=== PATIENT | male | born 1950 | race African-American/Black ===

== ENCOUNTER 2017-07-16 16:43 | Inpatient (IN) ==
[2017-07-16] MEDS ORDERED: METOCLOPRAMIDE 10 MG/2 ML VIAL IV STA (17:12)
[2017-07-16] MEDS ORDERED: ONDANSETRON 4 MG/2 ML VIAL IV STA (17:12)
[2017-07-16] MEDS ORDERED: PANTOPRAZOLE 40 MG VIAL IV STA (17:12)
[2017-07-16 17:19] LABS: Basophils % 0.3 % (0.0-0.8); Eosinophils # 0.2 10*3/uL (0.0-0.87); Hematocrit 27.8 VOL% (42.0-52.0); Hemoglobin 8.9 GM/DL (14.0-18.0); Immature Granulocytes % 0.9 %; Immature Granulocytes Absolute 0.06 #; Lymphocytes # 1.7 10*3/uL (1.4-4.0); Lymphocytes % 25.1 % (21.2-54.2); Mean Corpuscular Hemoglobin 32 PG (27-34); Mean Corpuscular Volume 99.6 FL (87-102); Mean Platelet Volume 10.1 FL (9.6-12.0); Monocytes % 14.6 % (1.7-12.7); Neutrophils # 3.7 10*3/uL (1.4-7.4); Neutrophils % 56.1 % (38.7-73.9); Platelet Count 232 T/CUMM (130-400); Red Blood Count 2.79 MC/CUMM (3.8-5.5); Red Cell Distribution Width 13.4 % (9.3-17.3); White Blood Count 6.6 T/CUMM (4-12)
[2017-07-16] MEDS ORDERED: PANTOPRAZOLE 40 MG VIAL IV ONE (17:20)
[2017-07-16] MEDS ORDERED: ONDANSETRON 4 MG/2 ML VIAL ONE (17:20)
[2017-07-16] MEDS ORDERED: METOCLOPRAMIDE 10 MG/2 ML VIAL ONE (17:20)
--- NOTE | 2017-07-16 17:25 | Emergency Department Note ---
Arrival - Arrival Chief Complaint: Nausea/Vomiting/Diarrhea Stated Complaint: sick ED Nursing Triage Note: reports vomiting everytime he tries to eat for the last three weeks. has a hx of bone cancer two months ago but is not taking treatments for that. Mode of Arrival: Wheelchair Limitations: No Limitations Source: Patient, Family Time Seen by Provider: 07/16/17 17:12 - History of Present Illness HPI Narrative: This 67-year-old black male presents with a history of 8 months of heartburn, belching, water brash, nausea, and vomiting with just about anytime he takes things orally be it liquid or solid. During that course of time he states he has lost 50 pounds and states that after 8 months his primary care physician in [place] is referred him to GI for an August 02 appointment. Complicating matters patient has multiple myeloma diagnosed by Dr. Coleman but he desired not to undertake treatment and has never gone back to Dr. Coleman. Finally he is status post a porcine aortic valve replacement and 2014 and was in the past followed by Dr. Michel. Currently at rest in bed he is in no acute distress. Onset (ago): month(s) (Patient presents 8 months post onset of symptoms) Allergies/Adverse Reactions: Allergies Allergy/AdvReac Type Severity Reaction Status Date / Time No Known Allergies Allergy Verified 04/30/15 16:05 Home Medications: Home Medications Medication Instructions Recorded Confirmed Type Clorazepate [Tranxene] 3.75 mg PO BID PRN 04/30/15 07/16/17 History Losartan [Cozaar] 50 mg PO QAM 07/16/17 07/16/17 History Omeprazole [Omeprazole] 40 mg PO QAM 07/16/17 07/16/17 History Tamsulosin [Flomax] 0.4 mg PO QAM 07/16/17 07/16/17 History Review of System - Review of System 12 point system: reviewed and no additional remarkable complaints except as stated - Review of System Constitutional: Present: as per HPI Gastrointestinal: Present: as per HPI Medical,Surgical,& Family Hx - Medical History Cardio: History of: Hypertension, Valvular Heart Disease (critical, symptomatic aortic stenosis) Neurology: No history of: Seizures Genitourinary: History of: Prostate Problems (BPH) Other: History of: Cancer (bone cancer) - Surgical History Orthopedic Surgeries: Surgical HX of;: Orthopedic Surgery (right knee scope) - Family History Family History: Reports;: Family Diabetes (MOTHER), Family Heart Disease ( MOTHER AND FATHER), Family Hypertension (MOTHER AND FATHER) - Social History Smoking Status: Never smoker Exam Physical Examination: GENERAL: Obese black male in no acute distress. HEENT: Normocephalic. No trauma. Moist mucous membranes. EOMI. PERRLA. ENT NML NECK: Supple. No adenopathy. CARDIAC: Regular. 2/4 joy heart rate 93 CHEST: Clear to auscultation. No respiratory distress. O2 sat 90% ABDOMEN: Soft. Minimal midepigastric tenderness. Active bowel sounds. EXTREMITIES: No trauma. Normal ROM. No pedal edema. SKIN: No diaphoresis. No rash. NEURO: Alert. Neuro intact. No focal deficits. Vital Signs: Vital Signs Temperature 98.1 F 07/16/17 16:51 Pulse Rate 86 07/16/17 18:00 Respiratory Rate 18 07/16/17 18:00 Blood Pressure 127/90 07/16/17 18:00 O2 Sat by Pulse Oximetry 97 07/16/17 18:00 Course - Reevaluation(s) Reevaluation #1: Discussed with family the need for admission given his deteriorating kidney function - Consultations Consultation #1: Discussed with hospitalist service will admit for further evaluation treatment. Results - Labs CBC & BMP: 07/16/17 17:11 07/16/17 17:11 Labs: I have reviewed the laboratory noted the anemia and the severe aberration of renal function. - Diagnostic Findings Procedure: Abdominal x-ray: image reviewed by me, report reviewed by me ( Scattered small bowel and colon gas consistent with ileus but not obstruction peer), Chest x-ray: image reviewed by me, report reviewed by me (Mild cardiomegaly otherwise stable chest) Disposition Clinical Impression: Renal failure, Untreated multiple myeloma, Porcine prosthetic aortic valve, Dysphagia Case discussed with: patient, patient's family Disposition: Still a Patient Condition: Guarded Time of Disposition: 18:45
[2017-07-16 17:40] LABS: Apearance,Urine CLEAR (Clear); Bacteria,Urine Occasional /HPF (Few); Bilirubin,Urine Negative (Negative); Blood, Urine Moderate mg/dL (Negative); Glucose,Urine (UA) Negative (Negative); Ketones,Urine Negative (Negative); Nitrite,Urine Negative (Negative); Protein,Urine 30 MG/DL; RBC,Urine 1 /HPF (0-4); Urine Color Straw (Yellow); Urine Specific Gravity 1.005 (1.001-1.035); Urine Urobilinogen < 2.0 EU/DL (0.2-1.0); WBC,Urine 2 /HPF (0-6)
[2017-07-16 17:53] LABS: Alanine Aminotransferase 14 U/L (16-61); Albumin 3.3 G/DL (3.4-5.0); Alkaline Phosphatase 112 U/L (45-117); Amylase 177 U/L (25-115); Aspartate Amino Transferase 9 U/L (0-37); Bilirubin,Total < 0.39 MG/DL (0.2-1.0); Blood Urea Nitrogen 121 MG/DL (7-18); Calcium 9.7 MG/DL (8.5-10.1); Glucose 115 MG/DL (74-106); Osmolality,Calculated 318.4 MOS/KG (273-304); Potassium 4.5 MMOL/L (3.5-5.1); Sodium 140 MMOL/L (136-145); Total Protein 9.6 G/DL (6.4-8.3)
--- NOTE | 2017-07-16 18:32 | XRay Report ---
2 view chest. Indication: Cough. Comparison: May 01, 2015. The heart is enlarged. Post median sternotomy. Prosthetic valve is present. Pulmonary vasculature is normal. The lung dacosta are clear. Mild degenerative changes of the spinal column. Impression: Mild stable cardiomegaly. No acute abnormality. PROCEDURE INTERPRETED AT [facility] DEPARTMENT OF RADIOLOGY Final Report Signed by: Dr. Alyson Perkins
--- NOTE | 2017-07-16 18:34 | XRay Report ---
2 view abdomen. Indication: Generalized abdominal pain. The heart is borderline enlarged. Post median sternotomy. No free air. There is mild gaseous distention of small intestine particularly in the left upper quadrant. There is gas in normal caliber colon to the level of the rectum. Vascular calcifications are seen within the pelvis. There is scoliosis and degenerative change present within the spinal column. Impression: Focal ileus in the left upper quadrant. PROCEDURE INTERPRETED AT [facility] DEPARTMENT OF RADIOLOGY Final Report Signed by: Dr. Alyson Perkins
--- NOTE | 2017-07-16 18:45 | EKG Report ---
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
[2017-07-16] MEDS ORDERED: ZALEPLON 5 MG CAPSULE PO PRN (19:34)
[2017-07-16] MEDS ORDERED: ACETAMINOPHEN 325 MG TABLET PO PRN (19:34)
[2017-07-16] MEDS ORDERED: CLORAZEPATE 3.75 MG TABLET PO PRN (19:40)
--- NOTE | 2017-07-16 19:47 | Nephrology History & Physical ---
History of Present Illness Chief complaint: Nausea History of present illness: Mr. Troy is a 67 year old male with a history of hypertension chronic kidney disease is followed by Dr. Jeong. He also has a history of GERD, BPH, as well as a diagnosis of coronary artery disease with CABG in 2014. He was also diagnosed with myeloma diagnosed since March of this year. The patient presents with 8 month history of a 50 pound weight loss GERD-like symptoms that has progressed to nausea and vomiting. The patient states he has been trying to take Pedialyte noodles but still having further nausea today. He mentions having a bitter taste in his mouth for several weeks to months. Again noted significant weight loss. Today he was not feeling well some shortness of breath and was staggering when he walked. Today, patient serum creatinine was noted to be 22 and BUN greater than 120. He mentions no fevers or chills. At present he states his nausea is improved. Patient states he has not had any change in his medications. He had followed up with hematology oncology regarding myeloma and stated he does not want chemotherapy. Moreover patient has stated that if he needed dialysis he would be willing to do dialysis as a last resort. Expressed to the patient about resuscitation status he expressed with his that he does not want resuscitation if his heart were to stop or breathe or to stop. Home Medications Medication Instructions Recorded Confirmed Type Clorazepate [Tranxene] 3.75 mg PO BID PRN 04/30/15 07/16/17 History Losartan [Cozaar] 50 mg PO QAM 07/16/17 07/16/17 History Omeprazole [Omeprazole] 40 mg PO QAM 07/16/17 07/16/17 History Tamsulosin [Flomax] 0.4 mg PO QAM 07/16/17 07/16/17 History Allergies Allergy/AdvReac Type Severity Reaction Status Date / Time No Known Allergies Allergy Verified 04/30/15 16:05 Review of Systems Constitutional: anorexia, fatigue, lethargy, malaise Respiratory: dyspnea, no cough Gastrointestinal: heartburn, nausea, vomiting, other (Weight loss), no diarrhea Genitourinary: no flank pain Musculoskeletal: no back pain Medical,Surgical,& Family Hx - Medical History Cardio: History of: Hypertension, Valvular Heart Disease (critical, symptomatic aortic stenosis) Neurology: No history of: Seizures Genitourinary: History of: Prostate Problems (BPH) Other: History of: Cancer (bone cancer) - Surgical History Orthopedic Surgeries: Surgical HX of;: Orthopedic Surgery (right knee scope) - Family History Family History: Reports;: Family Diabetes (MOTHER), Family Heart Disease ( MOTHER AND FATHER), Family Hypertension (MOTHER AND FATHER) - Social History Smoking Status: Never smoker Exam - Nephrology - Vital Signs Vital signs: Vital Signs Temp Pulse Resp BP BP Pulse Ox 07/16/17 18:40 86 18 142/93 99 07/16/17 18:00 86 18 127/90 97 07/16/17 17:01 91 H 18 137/88 100 07/16/17 16:51 98.1 F 93 H 18 140/94 98 - General Appearance General appearance: well-developed, appears started age, fatigue EENT: ATNC Neck: supple Respiratory: clear Cardiology: regular rate, regular rhythm Gastrointestinal: normoactive bowel sounds, no tenderness, no guarding Integumentary: no rash Neurologic: alert and oriented x3 Musculoskeletal: no clubbing Psychiatric: mood/affect appropriate, cooperative Results - Labs CBC & BMP: 07/16/17 17:11 07/16/17 17:11 Assessment and Plan (1) Myeloma Status: Acute Current Visit: Yes (2) Acute renal failure Status: Acute Assessment and plan: More likely due to acute on chronic kidney disease. We will get a renal ultrasound. Hepatitis panel. Continue with IV fluids. Daily BMP. Have expressed to the patient that he will probably need dialysis. He has stated that he would do dialysis but again denies wanting to do chemotherapy. Current Visit: Yes (3) Chronic kidney disease (CKD), stage V Status: Chronic Assessment and plan: Acute on chronic kidney disease. Patient to protect left arm. Daily weight. Repeat BMP in a.m. Current Visit: Yes (4) Status post aortic valve replacement with bioprosthetic valve Status: Chronic Current Visit: No (5) BPH (benign prostatic hyperplasia) Status: Chronic Current Visit: No (6) GERD (gastroesophageal reflux disease) Status: Chronic Current Visit: No
--- NOTE | 2017-07-16 19:52 | Event Note ---
I have discussed resuscitation status with patient in the presence of his emergency department nurse Garcia Candace at this time patient has stated he does not want resuscitation if his heart were to stop her breathing were to stop. Specifically does not want to be preservation just cardioverted or have a breathing tube. Will label chart DO NOT RESUSCITATE.
[2017-07-16 20:23] LABS: INR 1.1; PT Patient Result 11.7 SECS; Partial Thromboplastin Time 26.3 SECS (0-40)
[2017-07-16] MEDS ORDERED: PNEUMOCOCCAL VACCINE (13 VALENT) 0.5 ML SYRINGE IM ONE (21:02)
[2017-07-16] MEDS: ENOXAPARIN 30 MG/0.3 ML SYRINGE SUBCUT SCH (21:24)
[2017-07-16] MEDS: DOCUSATE SODIUM 100 MG CAPSULE PO SCH (21:24)
[2017-07-16] MEDS: SODIUM CHLORIDE 0.45% 1,000 ML IV SCH (21:24)
[2017-07-17] MEDS: SODIUM CHLORIDE 0.45% 1,000 ML IV SCH (05:23)
[2017-07-17 06:57] LABS: Basophils % 0.2 % (0.0-0.8); Eosinophils # 0.2 10*3/uL (0.0-0.87); Eosinophils % 3.5 % (0.00-10.9); Hematocrit 24.6 VOL% (42.0-52.0); Immature Granulocytes % 1.1 %; Immature Granulocytes Absolute 0.06 #; Lymphocytes # 1.5 10*3/uL (1.4-4.0); Lymphocytes % 28.4 % (21.2-54.2); Mean Corpuscular HGB Conc 31.7 GM/DL (32-36); Mean Corpuscular Hemoglobin 32 PG (27-34); Mean Corpuscular Volume 100.4 FL (87-102); Mean Platelet Volume 10.3 FL (9.6-12.0); Monocytes # 0.7 10*3/uL (0.11-0.8); Monocytes % 13.4 % (1.7-12.7); Neutrophils # 2.9 10*3/uL (1.4-7.4); Neutrophils % 53.4 % (38.7-73.9); Platelet Count 206 T/CUMM (130-400); Red Blood Count 2.45 MC/CUMM (3.8-5.5); Red Cell Distribution Width 13.4 % (9.3-17.3); White Blood Count 5.4 T/CUMM (4-12)
[2017-07-17 07:03] LABS: Hemoglobin 7.8 GM/DL (14.0-18.0)
[2017-07-17 07:22] LABS: Calcium 9.2 MG/DL (8.5-10.1); Osmolality,Calculated 319.3 MOS/KG (273-304); Potassium 4.9 MMOL/L (3.5-5.1)
[2017-07-17 07:54] LABS: Hepatitis A Ab IgM Quant 0.11 Index; Hepatitis A Ab IgM Result Negative (Negative); Hepatitis B Core IgM Quant 0.11 Index; Hepatitis B Core IgM Result Negative (Negative); Hepatitis B Surface Ag Quant 0.58 Index; Hepatitis B Surface Ag Result Negative (Negative); Hepatitis C Virus Ab Quant 0.05 Index; Hepatitis C Virus Ab Result Negative (Negative)
--- NOTE | 2017-07-17 09:10 | Ultrasound Report ---
US renal Bilateral Indication: Acute on chronic renal failure. Comparison: None. Technique: Multiple longitudinal and transverse real-time sonographic images of the kidneys are obtained. Findings: The right kidney measures 11.9 cm, and the left kidney measures 11.0 cm. There is no evidence of hydronephrosis. Renal parenchyma is somewhat hyperechoic suggestive of medical renal disease. IMPRESSION: Medical renal disease without evidence of hydronephrosis. PROCEDURE INTERPRETED AT [facility] DEPARTMENT OF RADIOLOGY Final Report Signed by: Dr Madhu Gordon
--- NOTE | 2017-07-17 09:35 | Nephrology Consult Note ---
History of Present Illness Chief complaint: End-stage renal disease History of present illness: Mr. Troy is a 67 year old male with a history of hypertension chronic kidney disease with worsening renal function presented yesterday with nausea vomiting BUN was greater than 100 and creatinine was greater than 22. Patient also has a history of multiple myeloma and has decided not to go to treatment. He has expressed that if his kidneys were to fail he would do dialysis but again has expressed does not want chemotherapy. Renal ultrasound shows evidence of medical renal disease. Creatinine has not improved in the last 12 hours. At this time patient is in agreement to proceed with dialysis. Nephrology has been consulted for these renal issues and again have us discuss with patient and his family who are in agreement with the plan. Home Medications Medication Instructions Recorded Confirmed Type Clorazepate [Tranxene] 7.5 mg PO BID 04/30/15 07/16/17 History Losartan [Cozaar] 50 mg PO QAM 07/16/17 07/16/17 History Omeprazole [Omeprazole] 40 mg PO QAM 07/16/17 07/16/17 History Tamsulosin [Flomax] 0.4 mg PO QAM 07/16/17 07/16/17 History Allergies Allergy/AdvReac Type Severity Reaction Status Date / Time No Known Allergies Allergy Verified 04/30/15 16:05 Medical,Surgical,& Family Hx - Medical History Cardio: History of: Hypertension, Valvular Heart Disease (critical, symptomatic aortic stenosis) Neurology: No history of: Seizures Genitourinary: History of: Prostate Problems (BPH) Other: History of: Cancer (bone cancer) - Surgical History Orthopedic Surgeries: Surgical HX of;: Orthopedic Surgery (right knee scope) - Family History Family History: Reports;: Family Diabetes (MOTHER), Family Heart Disease ( MOTHER AND FATHER), Family Hypertension (MOTHER AND FATHER) - Social History Smoking Status: Never smoker Frequency of Alcohol Use: None Type of Drug Use: None Review of Systems Constitutional: fatigue, lethargy Respiratory: dyspnea Gastrointestinal: nausea, vomiting Exam - Vital Signs Vital signs: Period Temp Pulse Resp BP Sys/Sheldon Pulse Ox Last 24 Hr 97.1 F-98.6 F 82-114 12-20 117-180/62-98 93-100 - General Appearance General appearance: well-developed EENT: ATNC Neck: supple Respiratory: clear Cardiology: regular rate, regular rhythm Gastrointestinal: normoactive bowel sounds, no tenderness Neurologic: alert and oriented x3 Musculoskeletal: no deformities, no clubbing Psychiatric: mood/affect appropriate, cooperative Results - Labs CBC & BMP: 07/17/17 06:21 07/17/17 06:21 Assessment and Plan (1) Myeloma Status: Acute Current Visit: Yes (2) Acute renal failure Status: Acute Assessment and plan: More likely progressive renal failure. Patient has underlying medical renal disease by renal ultrasound done today. Serum creatinine greater than 22. He is in agreement to initiate hemodialysis. Current Visit: Yes (3) Chronic kidney disease (CKD), stage V Status: Chronic Assessment and plan: Acute on chronic kidney disease. Progressive renal failure. Hepatitis panel is negative. Have consulted surgery for dialysis catheter. Current Visit: Yes (4) Status post aortic valve replacement with bioprosthetic valve Status: Chronic Current Visit: No (5) BPH (benign prostatic hyperplasia) Status: Chronic Current Visit: No (6) GERD (gastroesophageal reflux disease) Status: Chronic Current Visit: No
--- NOTE | 2017-07-17 10:25 | General Surgery Consult Note ---
Assessment and Plan (1) Acute renal failure Status: Acute Assessment and plan: Patient has CKD 5 now with worsening renal failure which is not recovering which dialysis been recommended. The patient has agreed to receive dialysis treatments as this is felt by nephrology to likely be a progression of his disease. Dr. Newell is consulted for hemodialysis catheter placement. I reviewed the risks of procedure including but not limited to infection, injury of adjacent structures, bleeding, lung injury, septicemia which could be life- threatening, and wound healing complications. The patient and his who is present expressed understanding of these risks and agreed to proceed. Patient has requested to be DNR, and I discussed with him that he would be fully resuscitated if there were any arrest occurrences in the operating room; again they are in understanding and agreement with this plan of care. He may proceed with dialysis post placement. Current Visit: Yes (2) Chronic kidney disease (CKD), stage V Status: Chronic Current Visit: Yes History of Present Illness Chief complaint: Worsening renal failure History of present illness: Mr. Troy is a 67 year old male Home Medications Medication Instructions Recorded Confirmed Type Clorazepate [Tranxene] 7.5 mg PO BID 04/30/15 07/16/17 History Losartan [Cozaar] 50 mg PO QAM 07/16/17 07/16/17 History Omeprazole [Omeprazole] 40 mg PO QAM 07/16/17 07/16/17 History Tamsulosin [Flomax] 0.4 mg PO QAM 07/16/17 07/16/17 History Allergies Allergy/AdvReac Type Severity Reaction Status Date / Time No Known Allergies Allergy Verified 04/30/15 16:05 Medical,Surgical,& Family Hx - Medical History Cardio: History of: Hypertension, Valvular Heart Disease (critical, symptomatic aortic stenosis s/p valve replacement) Neurology: No history of: Seizures Genitourinary: History of: Prostate Problems (BPH) Other: History of: Cancer (bone cancer) - Surgical History Orthopedic Surgeries: Surgical HX of;: Orthopedic Surgery (right knee scope) - Family History Family History: Reports;: Family Diabetes (MOTHER), Family Heart Disease ( MOTHER AND FATHER), Family Hypertension (MOTHER AND FATHER) - Social History Smoking Status: Never smoker Frequency of Alcohol Use: None Type of Drug Use: None - Constitutional Constitutional: Absent: chills, fever(s) - Cardiovascular Cardiovascular: Present: dyspnea on exertion. Absent: chest pain at rest - Gastrointestinal Gastrointestinal: Present: other (No current N/V). Absent: abdominal pain Hematologic/Lymphatic: Absent: easy bleeding, easy bruising Exam - Constitutional Vitals: Period Temp Pulse Resp BP Sys/Sheldon Pulse Ox Last 24 Hr 97.1 F-98.6 F 82-114 12-20 117-180/62-98 93-100 General appearance: no acute distress - Head Head exam: Present: atraumatic - Eye Eye exam: Absent: scleral icterus - Neck Neck exam: Present: trachea midline - Respiratory Respiratory exam: Present: clear to auscultation bilaterally - Cardiovascular Cardiovascular exam: Present: RRR - GI/Abdominal GI/Abdominal exam: Present: soft. Absent: distended, tenderness - Neurological Exam Neurological exam: Present: alert, oriented X3 Speech: Present: normal Results - Labs CBC & BMP: 07/17/17 06:21 07/17/17 06:21 Lab Results: I have reviewed the past 24 hour labs
[2017-07-17] MEDS ORDERED: LIDOCAINE 1%/EPI INJ 20 ML VIAL ONE (12:12)
[2017-07-17] MEDS ORDERED: BUPIVACAINE MPF 0.25% /EPI 30 ML VIAL ONE (12:12)
[2017-07-17] MEDS ORDERED: HEPARIN 5,000 UNIT/1 ML VIAL ONE (12:12)
[2017-07-17] MEDS ORDERED: PROPOFOL 200 MG/20 ML VIAL IV ONE (13:00)
[2017-07-17] MEDS ORDERED: LIDOCAINE 1% 5 ML VIAL ONE (13:00)
[2017-07-17] MEDS ORDERED: ONDANSETRON 4 MG/2 ML VIAL ONE (13:00)
[2017-07-17] MEDS ORDERED: SODIUM CHLORIDE 0.9% 100 ML IV ONE (13:51)
[2017-07-17] MEDS ORDERED: fentaNYL 100 MCG/2 ML VIAL ONE (13:51)
[2017-07-17] MEDS ORDERED: MIDAZOLAM 2 MG/2 ML VIAL ONE (13:51)
--- NOTE | 2017-07-17 13:59 | Hospitalist Progress Note ---
Assessment and Plan (1) Myeloma Status: Acute Assessment and plan: 1)Multiple Myeloma- no treatment desired. DNR 2)ESRD- initiating HD today. 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 He is going to have dialysis catheter placed today and then start dialysis. He does not want to have treatment for his MM. Exam - Constitutional Vitals: Period Temp Pulse Resp BP Sys/Sheldon Pulse Ox Last 24 Hr 97.1 F-98.6 F 82-114 12-20 117-180/62-98 93-100 General appearance: no acute distress, over weight - Eye Eye exam: Present: EOMI. Absent: scleral icterus - Respiratory Respiratory exam: Present: clear to auscultation bilaterally - Cardiovascular Cardiovascular exam: Present: regular rate and rhythm - GI/Abdominal GI/Abdominal exam: Present: normal bowel sounds, soft - Extremities Exam Extremities exam: Absent: edema - Neurological Exam Neurological exam: Present: alert, oriented X3 Results - Labs CBC & BMP: 07/17/17 06:21 07/17/17 06:21 Lab Results: I have reviewed the past 24 hour labs
--- NOTE | 2017-07-17 14:04 | Anesthesia Post-Op ---
Anesthesia Post OP - Post Ansesthetic Evaluation Patient seen in post op: Yes Resp: within normal limits CV: within normal limits Mental: within normal limits Temp: within normal limits [id number]: within normal limits Nausea and Vomiting: within normal limits Pain: within normal limits
--- NOTE | 2017-07-17 14:10 | XRay Report ---
Exam: XR chest 1V portable Date: 07/17/2017 1:38 PM Indication: Hemodialysis catheter placement Comparison: 07/16/2017 Technical: AP Findings: A dialysis catheter is placed from a left-sided approach with distal tip is in the innominate -superior vena cava junction. Sternotomy wires are present. No obvious infiltrates or effusions. The heart is normal in size. No pneumothorax. Oxygen face shield is present Impression: 1. Interval placement of dialysis catheter from a left-sided approach with the distal tip in the proximal SVC 2. Previous sternotomy PROCEDURE INTERPRETED AT [facility] DEPARTMENT OF RADIOLOGY Final Report Signed by: Dr. Gonzales Morris
[2017-07-17] MEDS: DOCUSATE SODIUM 100 MG CAPSULE PO SCH ×2 (15:35→20:04)
--- NOTE | 2017-07-17 15:49 | Operative Note ---
Date of procedure: 07/17/17 Pre-op diagnosis: End-stage renal disease Post-op diagnosis: same Procedure: Procedure performed: Placement of left internal jugular tunneled hemodialysis catheter #2 ultrasound-guided venous access #3 supervision fluoroscopy Procedure in detail: After informed consent was obtained, patient taken operating suite lies upon the operating table. After monitored anesthesia was initiated the patient was placed in Trendelenburg position in the bilateral neck and chest prepped and draped in usual sterile fashion. After procedural pause ultrasound brought after a sterile sleeve covering ultrasound the left neck revealed a patent and compressible left internal jugular vein. Left internal jugular vein was then accessed using an 18-gauge Seldinger needle under ultrasound guidance on the first attempt. There is return of nonpulsatile dark red blood. Guidewire inserted without resistance. Fluoroscopy demonstrated guidewire be coursing in appropriate position. Next a 23 cm cuffed hemodialysis catheter was tunneled from separate incision in the left chest wall up to the base the left neck. Dilator and sheath were placed over the guidewire using Seldinger technique under fluoroscopic guidance. Dilator and guidewire were removed. Catheter placed through the sheath and sheath peeled away leaving the catheter tip in Spear vena cava. Catheter withdrew and flushed easily was locked with heparinized saline. It was secured in place with 2-0 nylon suture. Incision closed with 2-0 nylon suture. Sterile dressings applied. Patient was taken recovery room in stable condition. All lap and needle counts correct in the case. Anesthesia: MAC Surgeon / Physician: Vazquez Newell Estimated blood loss: other (Less than 10 cc) Specimens: none sent Condition: stable Disposition: PACU Results - Labs CBC & BMP: 07/17/17 06:21 07/17/17 06:21 Discharge Plan - Discharge Medications No Action Clorazepate [Tranxene] 7.5 mg PO BID Losartan [Cozaar] 50 mg PO QAM Omeprazole [Omeprazole] 40 mg PO QAM Tamsulosin [Flomax] 0.4 mg PO QAM - Follow Up or Referral - Forms/Instructions
--- NOTE | 2017-07-17 16:32 | Dialysis Note ---
Dialysis Note - Dialysis Note Patient seen on dialysis. He is tolerating the procedure. Blood pressure 130/ 69. Cardiovascular regular rate. Lungs clear to auscultation. Abdomen is soft.
[2017-07-17] MEDS ORDERED: HEPARIN 10,000 UNIT/10 ML VIAL IV SCH (18:30)
[2017-07-17] MEDS: TAMSULOSIN 0.4 MG CAPSULE PO SCH (19:00)
[2017-07-17] MEDS: PANTOPRAZOLE 40 MG TABLET PO SCH (19:00)
[2017-07-17] MEDS: ENOXAPARIN 30 MG/0.3 ML SYRINGE SUBCUT SCH (20:04)
[2017-07-18 05:38] LABS: Basophils % 0.3 % (0.0-0.8); Eosinophils # 0.2 10*3/uL (0.0-0.87); Eosinophils % 2.7 % (0.00-10.9); Hematocrit 24.2 VOL% (42.0-52.0); Hemoglobin 7.7 GM/DL (14.0-18.0); Immature Granulocytes % 1.2 %; Immature Granulocytes Absolute 0.07 #; Lymphocytes # 1.4 10*3/uL (1.4-4.0); Lymphocytes % 23.3 % (21.2-54.2); Mean Corpuscular HGB Conc 31.8 GM/DL (32-36); Mean Corpuscular Hemoglobin 32 PG (27-34); Mean Corpuscular Volume 100.4 FL (87-102); Mean Platelet Volume 10.4 FL (9.6-12.0); Monocytes # 0.9 10*3/uL (0.11-0.8); Monocytes % 14.1 % (1.7-12.7); Neutrophils # 3.5 10*3/uL (1.4-7.4); Neutrophils % 58.4 % (38.7-73.9); Platelet Count 194 T/CUMM (130-400); Red Blood Count 2.41 MC/CUMM (3.8-5.5); Red Cell Distribution Width 13.2 % (9.3-17.3)
[2017-07-18 06:09] LABS: Calcium 9.3 MG/DL (8.5-10.1); Osmolality,Calculated 303.5 MOS/KG (273-304)
[2017-07-18] MEDS: DOCUSATE SODIUM 100 MG CAPSULE PO SCH ×2 (08:55→20:40)
[2017-07-18] MEDS: TAMSULOSIN 0.4 MG CAPSULE PO SCH (08:55)
[2017-07-18] MEDS: PANTOPRAZOLE 40 MG TABLET PO SCH (08:56)
--- NOTE | 2017-07-18 11:44 | Hospitalist Progress Note ---
Assessment and Plan (1) Myeloma Status: Acute Assessment and plan: 1)Multiple Myeloma- no treatment desired. DNR 2)ESRD- initiating HD today. 3)anemia due to MM and CKD- he was not transfused at HD yesterday- we will transfuse him today. 4)Ucx negative. 5)dispo- he plans to return home on HD. Current Visit: Yes (2) Chronic kidney disease (CKD), stage V Status: Chronic Current Visit: Yes Hospitalist: Subjective Interval history: Mr Troy is feeling ok today. He had dialysis yesterday and will again today. CM is working on outpatient HD arrangements. Exam - Constitutional Vitals: Period Temp Pulse Resp BP Sys/Sheldon Pulse Ox Last 24 Hr 97.2 F-98.3 F 86-99 14-22 109-151/66-92 94-100 General appearance: no acute distress, over weight - Eye Eye exam: Present: EOMI. Absent: scleral icterus - Respiratory Respiratory exam: Present: clear to auscultation bilaterally - Cardiovascular Cardiovascular exam: Present: regular rate and rhythm - GI/Abdominal GI/Abdominal exam: Present: normal bowel sounds, soft. Absent: tenderness - Extremities Exam Extremities exam: Absent: edema Results - Labs CBC & BMP: 07/18/17 04:57 07/18/17 04:57 Lab Results: I have reviewed the past 24 hour labs
--- NOTE | 2017-07-18 12:27 | Dialysis Note ---
Dialysis Note - Dialysis Note Mr. Troy seen during his hemodialysis. He is currently mildly hypotensive with a blood pressure 100 systolic. He continues to dialyze and is doing well.
[2017-07-18] MEDS ORDERED: SODIUM CHLORIDE 0.9% 250 ML IV PRN (12:32)
[2017-07-18] MEDS ORDERED: SODIUM CHLORIDE 0.9% 500 ML IV ONE (12:47)
[2017-07-18] MEDS ORDERED: SODIUM CHLORIDE 0.9% 1,000 ML IV ONE (13:16)
--- NOTE | 2017-07-18 13:16 | Event Note ---
critical care 35 minutes Called to see patient for hypotension. When her returned from dialysis his BP was 61/25. He was somnolent his eyes rolled back in his head and then began to vomit. A bolus of NS was started and when he remained hypotensive he was placed in trendelenburg and his BP now is 109/50. When I arrived he was starting to wake and answered questions with clear speech. He had his second dialysis today for 4 hours. His lungs are clear, he is not tachycardic. Abd soft and nontender. No edema. Amount removed at dialysis is not available at this time. Plan- transfer to CCU, bolus with another 500 cc NS. r/o PR, stat labs proceed with transfusion when blood available. I suspect this is due to hypovolemia after dialysis. We will let nephrology know. I have talked to his also and explained our plan. [id number] removed at dialysis
[2017-07-18 13:29] LABS: Basophils % 0.3 % (0.0-0.8); Eosinophils # 0.2 10*3/uL (0.0-0.87); Eosinophils % 2.1 % (0.00-10.9); Hematocrit 25.6 VOL% (42.0-52.0); Hemoglobin 8.1 GM/DL (14.0-18.0); Immature Granulocytes % 1.2 %; Immature Granulocytes Absolute 0.09 #; Lymphocytes # 2.7 10*3/uL (1.4-4.0); Lymphocytes % 35.7 % (21.2-54.2); Mean Corpuscular HGB Conc 31.6 GM/DL (32-36); Mean Corpuscular Hemoglobin 32 PG (27-34); Mean Corpuscular Volume 100.4 FL (87-102); Monocytes # 0.8 10*3/uL (0.11-0.8); Monocytes % 10.4 % (1.7-12.7); Neutrophils # 3.8 10*3/uL (1.4-7.4); Neutrophils % 50.3 % (38.7-73.9); Platelet Count 166 T/CUMM (130-400); Red Blood Count 2.55 MC/CUMM (3.8-5.5); Red Cell Distribution Width 13.3 % (9.3-17.3); White Blood Count 7.6 T/CUMM (4-12)
[2017-07-18 13:51] LABS: Calcium 8.5 MG/DL (8.5-10.1); Osmolality,Calculated 287.8 MOS/KG (273-304); Potassium 3.7 MMOL/L (3.5-5.1)
--- NOTE | 2017-07-18 13:56 | XRay Report ---
History is hypotension Comparison 07/17/2017 The heart is at the upper range normal in size. Dialysis catheter on the left again is been tip at the level of the azygos arch at the right lateral wall of the SVC. No congestive failure or confluent infiltrates seen No pneumothorax seen Impression: Stable portable chest PROCEDURE INTERPRETED AT [facility] DEPARTMENT OF RADIOLOGY Final Report Signed by: Dr. Mi Perkins
--- NOTE | 2017-07-18 15:02 | EKG Report ---
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
[2017-07-18] MEDS: ENOXAPARIN 30 MG/0.3 ML SYRINGE SUBCUT SCH (20:40)
[2017-07-19 01:14] LABS: Basophils % 0.1 % (0.0-0.8); Eosinophils # 0.1 10*3/uL (0.0-0.87); Eosinophils % 1.7 % (0.00-10.9); Hematocrit 27.8 VOL% (42.0-52.0); Hemoglobin 9.1 GM/DL (14.0-18.0); Immature Granulocytes % 2.3 %; Immature Granulocytes Absolute 0.17 #; Lymphocytes # 1.1 10*3/uL (1.4-4.0); Lymphocytes % 15.3 % (21.2-54.2); Mean Corpuscular HGB Conc 32.7 GM/DL (32-36); Mean Corpuscular Hemoglobin 32 PG (27-34); Mean Corpuscular Volume 96.5 FL (87-102); Mean Platelet Volume 9.8 FL (9.6-12.0); Monocytes % 13.6 % (1.7-12.7); NRBC # 0.02 10*3/uL; Platelet Count 180 T/CUMM (130-400); Red Blood Count 2.88 MC/CUMM (3.8-5.5); Red Cell Distribution Width 14.3 % (9.3-17.3); White Blood Count 7.5 T/CUMM (4-12)
[2017-07-19 01:44] LABS: Calcium 9.1 MG/DL (8.5-10.1); Osmolality,Calculated 287.8 MOS/KG (273-304); Potassium 4.7 MMOL/L (3.5-5.1)
--- NOTE | 2017-07-19 03:34 | EKG Report ---
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
[2017-07-19 05:07] LABS: Amorphous Crystals,Urine Occasional /HPF (Few); Apearance,Urine CLEAR (Clear); Bacteria,Urine Occasional /HPF (Few); Bilirubin,Urine Negative (Negative); Blood, Urine Moderate mg/dL (Negative); Glucose,Urine (UA) Negative (Negative); Ketones,Urine Negative (Negative); Mucus,Urine Occasional /LPF (Occasional); Nitrite,Urine Negative (Negative); Protein,Urine 30 MG/DL; RBC,Urine 1 /HPF (0-4); Squamous Epithelial Cell,Urine Occasional /HPF (0-10); Urine Color Straw (Yellow); Urine Specific Gravity 1.003 (1.001-1.035); Urine Urobilinogen < 2.0 EU/DL (0.2-1.0); WBC,Urine 3 /HPF (0-6)
[2017-07-19] MEDS: DOCUSATE SODIUM 100 MG CAPSULE PO SCH ×2 (08:43→20:40)
[2017-07-19] MEDS: PANTOPRAZOLE 40 MG TABLET PO SCH (08:43)
[2017-07-19] MEDS: TAMSULOSIN 0.4 MG CAPSULE PO SCH (08:43)
[2017-07-19] MEDS: ONDANSETRON 4 MG/2 ML VIAL IV PRN (09:20)
--- NOTE | 2017-07-19 10:23 | Hospitalist Progress Note ---
Assessment and Plan (1) NSTEMI (non-ST elevated myocardial infarction) Status: Acute Assessment and plan: The patient's troponin is now 3. We will consult the certified peer specialist concerning further management. Blood pressure is presently stable. Hemoglobin is 9 and creatinine 13. Current Visit: Yes (2) End stage renal disease on dialysis Status: Acute Current Visit: Yes (3) Status post aortic valve replacement with bioprosthetic valve Status: Chronic Current Visit: No Hospitalist: Subjective Interval history: Mr. Troy had his second hemodialysis treatment yesterday. The patient became hypotensive and was transferred to critical care area and given IV fluid challenge. Blood pressure improved through the night. Troponin elevated to 3 this morning consistent with non-ST elevation myocardial infarction. Exam - Constitutional Vitals: Period Temp Pulse Resp BP Sys/Sheldon Pulse Ox Last 24 Hr 96.7 F-98.2 F 88-105 8-25 70-169/52-103 92-100 Exam: Constitutional System: Minimal distress. No tremulousness. Head: Normocephalic, atraumatic. Ears, Nose and Throat System: No evidence of Otitis or Mastoiditis. No epistaxis or discharge Eyes System: Pupils equal, round, and reactive. Extraocular muscles intact. Neck: Supple, without adenopathy, No jugular venous distention. No thyromegaly , neck mass, or prior surgery apparent. Respiratory System: Chest clear to auscultation. Cardiovascular System: Heart with regular rate and rhythm. No murmur. GI System: Abdomen soft, nontender. Normo active bowel sounds present. Musculoskeletal System: limbs with no pedal edema. Full distal pulses. Neurological System: No discernable sensory deficit. No aphasia Psychiatric System: Conversation is rational Results - Labs CBC & BMP: 07/19/17 00:57 07/19/17 00:57 Lab Results: I have reviewed the past 24 hour labs Specialty Discharge - Follow Up or Referrals Follow up with: Vazquez Newell MD [Physician] - 2 Weeks
--- NOTE | 2017-07-19 13:23 | Dialysis Note ---
Dialysis Note - Dialysis Note Patient seen on hemodialysis, he is tolerating this well will continue his treatment unchanged.
[2017-07-19] MEDS: ENOXAPARIN 30 MG/0.3 ML SYRINGE SUBCUT SCH (20:27)
[2017-07-20 04:26] LABS: Hematocrit 28.4 VOL% (42.0-52.0); Hemoglobin 9.3 GM/DL (14.0-18.0)
[2017-07-20 05:01] LABS: Calcium 8.8 MG/DL (8.5-10.1); Magnesium 2.1 MG/DL (1.8-2.4); Osmolality,Calculated 277.1 MOS/KG (273-304); Potassium 4.5 MMOL/L (3.5-5.1)
[2017-07-20 05:14] LABS: Troponin I Only 2.54 NG/ML (0.00-0.045)
--- NOTE | 2017-07-20 08:44 | Cardiology Consult Note ---
Addendum entered and electronically signed by Charlotte Leyva NP 07/20/17 09:24 : Addendum: Of note, Mr. Troy has been anemic during this admission with H&H of 7.8 & 24.6, requiring blood transfusion of 2 units PRBCs. This may limit our use of dual antiplatelet therapy. For now, will start him on low dose aspirin. He denies a history of any bleeding issues. Original Note: Assessment and Plan - Time spent with patient Time spent with patient: Greater than 30 minutes (due to chart review, assessment, plan, and documentation) (1) End stage renal disease on dialysis Status: Acute Assessment and plan: See plan of care listed below. Current Visit: Yes (2) NSTEMI (non-ST elevated myocardial infarction) Status: Acute Assessment and plan: See plan of care listed below. Current Visit: Yes (3) Myeloma Status: Acute Assessment and plan: See plan of care listed below. Current Visit: Yes (4) Hypertension Status: Chronic Assessment and plan: See plan of care listed below. Current Visit: Yes (5) Hyperlipidemia Status: Chronic Assessment and plan: See plan of care listed below. Current Visit: Yes (6) Status post aortic valve replacement with bioprosthetic valve Status: Chronic Assessment and plan: See plan of care listed below. Current Visit: No History of Present Illness - Data of Consult Patient: known to practice within the last 3 years (Last seen by Dr. Michel 05/26/2015) Consult date: 07/19/17 Requesting Physician: Rivas Rendon - Consult Narrative Reason for consult: Elevated troponin History of present illness: Independent Producer: Dr. Michel Mr. Troy is a 67 year old male with a history of hypertension , hyperlipidemia, aortic valve sclerosis, BPH, GERD, chronic kidney disease. Risk factors are significant for: Age, obesity, hypertension, hyperlipidemia, sedentary lifestyle. According to records from March 2015, patient was evaluated at [facility] with cardiac catheterization demonstrating essentially normal coronary arteries with the presence of severe aortic stenosis. He was referred to Dr. Cannon where he is now status post bioprosthetic aortic valve replacement on 04/09/2015. Recent echocardiogram done 05/03/2017 reveals moderate LVH, EF 55%, grade 2 diastolic dysfunction, mildly enlarged left atrium, trace MR, well-seated bioprosthetic aortic valve with normal function. Mr. Troy was admitted to the hospital on 07/16/2017 with an 8 month history of 50 pound weight loss with GERD-like symptoms progressing to nausea and vomiting. Upon arrival, his creatinine was noted to be 22 with a BUN greater than 120. In the past couple months, he has been seen by hematology and has been diagnosed with myeloma. He has declined chemotherapy at this time. He was also asked about his wishes regarding resuscitation status and he expressed that he did not want resuscitation if his heart were to stop her breathing or to stop. He has been made a DNR. On arrival, he was in sinus rhythm with T-wave inversions inferiorly. Troponin was checked on 07/18/2017 and was 1.33. This subsequently otilio to 3.33 and has now started trending down and is 2.54 this morning. He underwent placement of a hemodialysis catheter on 07/17/2018 and began dialysis the same day. His T-wave inversions have now improved on the most recent EKG. Patient denies any recent chest pain or shortness of breath; however, according to H&P, he was having some shortness of breath prior to arrival. Will further discuss with Dr. Britton and await additional recommendations. IMPRESSION/PLAN: 1. END STAGE RENAL DISEASE ON DIALYSIS: Nephrology is following. He dialyzed yesterday, creatinine 9.8 today with BUN 35 and GFR 7. 2. NSTEMI: Prior records indicate he had essentially normal coronary arteries per [facility] at [place]; however, we do not have these records at this time. 3. MYELOMA: According to the patient, he has elected not to proceed with chemotherapy at this time. He states he is really unsure of his prognosis and life span if he does not receive treatment. 4. HYPERTENSION: Currently adequately controlled. We will start low-dose beta- qeuntin as his EKGs and blood work reflect NSTEMI. Will continue to monitor and adjust accordingly. 5. HYPERLIPIDEMIA: Will start low dose lipid lowering agent and check lipid panel in AM. 6. S/P AVR: He is now status post bioprosthetic aortic valve replacement on 08/2015. Recent echocardiogram done 05/03/2017 reveals moderate LVH, EF 55%, grade 2 diastolic dysfunction, mildly enlarged left atrium, trace MR, well- seated bioprosthetic aortic valve with normal function. CC: Rivas Rendon MD - Home Medications and Allergies Home Medications: Home Medications Medication Instructions Recorded Confirmed Type Clorazepate [Tranxene] 7.5 mg PO BID 04/30/15 07/16/17 History Losartan [Cozaar] 50 mg PO QAM 07/16/17 07/16/17 History Omeprazole [Omeprazole] 40 mg PO QAM 07/16/17 07/16/17 History Tamsulosin [Flomax] 0.4 mg PO QAM 07/16/17 07/16/17 History Allergies/Adverse Reactions: Allergies Allergy/AdvReac Type Severity Reaction Status Date / Time No Known Allergies Allergy Verified 04/30/15 16:05 Review of systems: - Constitutional: Present: weight loss, fatigue As per HPI. Absent: anorexia, chills, daytime sleepiness, excessive sweating, fever(s), frequent falls, headache(s), increased appetite, lethargy, malaise, night sweats, stops breathing during sleep, weakness, weight gain. - EENT Eyes: Present: As per HPI. Absent: blurry vision, diplopia, loss of vision Ears: Present: As per HPI. Absent: decreased hearing, ear discharge, ear pain Nose, mouth and throat: Present: As per HPI. Absent: dysphagia, epistaxis, headache(s), hoarseness, lip swelling, nasal congestion, neck mass, neck pain, sinus pressure, sore throat, throat swelling, tongue swelling, vertigo - Cardiovascular: Present: dyspnea, as per HPI. Absent: chest pain at rest, chest pain with activity, dyspnea on exertion, edema, claudication, diaphoresis , radiating jaw, neck or arm pain, lightheadedness, orthopnea, palpitations, PND - Respiratory: Present: dyspnea, as per HPI. Absent: dyspnea on exertion, cough , hemoptysis, wheezing, snoring, pain on inspiration - Gastrointestinal: Present: nausea, vomiting, As per HPI. Absent: abdominal pain, bloating, change in bowel habits, constipation, diarrhea, heartburn, hematemesis, hematochezia, loose stools, melena, - Genitourinary: Present: As per HPI. Absent: difficulty urinating, dysuria, flank pain, hematuria, nocturia, urinary frequency, urinary incontinence - Musculoskeletal: Present: As per HPI. Absent: arthralgias, back pain, joint swelling, limited range of motion, muscle cramps, muscle weakness, myalgias - Neurological: Present: As per HPI. Absent: abnormal gait, abnormal speech, behavioral changes, confusion, convulsions, disequilibrium, dizziness, focal weakness, frequent falls, headache(s), memory loss, numbness, paresthesias, radicular pain, syncope, tremor(s) - Psychiatric: Present: As per HPI. Absent: anxiety, confusion, depression, panic attacks - Endocrine: Present: fatigue, As per HPI. Absent: cold intolerance, heat intolerance, polydipsia, polyphagia - Hematologic/Lymphatic: Present: As per HPI. Absent: easy bleeding, easy bruising, lymphadenopathy Medical,Surgical,& Family Hx - Medical History Cardio: History of: Hypertension, Valvular Heart Disease (critical, symptomatic aortic stenosis s/p valve replacement) No history of: CAD Neurology: No history of: Seizures Endocrine: History of: Dyslipidemia No history of: Diabetes Mellitus (IDDM), Diabetes Mellitus (NIDDM) Genitourinary: History of: Prostate Problems (BPH) Gastrointestinal: History of: GERD Other: History of: Cancer (bone cancer) - Surgical History Orthopedic Surgeries: Surgical HX of;: Orthopedic Surgery (right knee scope) - Family History Family History: Reports;: Family Diabetes (MOTHER), Family Heart Disease ( MOTHER AND FATHER), Family Hypertension (MOTHER AND FATHER) - Social History Smoking Status: Never smoker Frequency of Alcohol Use: None Type of Drug Use: None Marital Status: Lives With:: Spouse Functional capacity: independent ambulation Physical Examination Vital Signs Temp Pulse Resp BP Pulse Ox 98.1 F 93 H 18 140/94 98 07/16/17 16:51 07/16/17 16:51 07/16/17 16:51 07/16/17 16:51 07/16/17 16:51 Exam: General appearance: Appears well. Pleasant and cooperative. Overweight, no acute distress. Head exam: Present: normal inspection, normocephalic, atraumatic. Absent: hematoma, laceration Eye exam: Present: EOMI. Absent: conjunctival injection, nystagmus, periorbital swelling, scleral icterus, laceration to eyelids, jaundice Pupils: Present: PERRL. Absent: constricted, dilated, fixed, irregular, unequal ENT exam: Present: normal exam, normal external ear exam, mucous membranes moist. Neck exam: Present: normal inspection, midline trachea. Absent: masses, lymphadenopathy, tenderness, thyromegaly, carotid bruit Respiratory exam: Present: clear to auscultation bilaterally. Absent: accessory muscle use, chest wall tenderness, rales, rhonchi, wheezing. Cardiovascular exam: Present: regular rate and rhythm, systolic murmur. Absent : gallop, JVD, rubs GI/Abdominal exam: Present: normal bowel sounds, soft. Absent: distended, firm , hernia, mass, tenderness. Extremities exam: Present: Normal Gait, No Clubbing, No Cyanosis, Upper Extr. Pulses 2+, Lower Extr. Pulses 2+, No edema. Capillary refill less than 3 seconds. Musculoskeletal: Present: No Fluid Collection, No Pain, Normal Range of Motion Back exam: Present: normal inspection. Absent: muscle spasm, vertebral tenderness Neurological exam: Present: awake, alert, oriented X3, Moves all extremities well without hemiparesis or paralysis. Grossly intact without resting or essential tremor Psychiatric exam: Present: normal affect, normal mood Skin exam: Present: normal color, warm, dry, intact. Left chest wall hemodialysis catheter dressing with mild bloody drainage. Absent: cyanosis, diaphoretic, rash, urticaria Result/EKG - Labs CBC & BMP: 07/20/17 04:10 07/20/17 04:10 Lab Results: I have reviewed the past 24 hour labs Labs: Laboratory Results - last 24 hr 07/20/17 07/20/17 04:10 04:10 Hgb 9.3 L Hct 28.4 L Sodium 135 L Potassium 4.5 Chloride 100 Carbon Dioxide 29 Anion Gap 10.5 BUN 35 H Creatinine 9.80 H GFR Calculation 7 BUN/Creatinine Ratio 3.00 L Glucose 107 H Calculated Osmolality 277.1 Calcium 8.8 Magnesium 2.1 Total Creatine Kinase 155 Troponin I 2.540 H D - EKG EKG results: interpreted by me, sinus rhythm (With ST-T abnormality) Specialty Discharge - Follow Up or Referrals Follow up with: Vazquez Newell MD [Physician] - 2 Weeks
[2017-07-20] MEDS: ASPIRIN CHEW 81 MG TABLET PO SCH (09:09)
[2017-07-20] MEDS: TAMSULOSIN 0.4 MG CAPSULE PO SCH (09:09)
[2017-07-20] MEDS: PANTOPRAZOLE 40 MG TABLET PO SCH (09:09)
[2017-07-20] MEDS: DOCUSATE SODIUM 100 MG CAPSULE PO SCH ×2 (09:09→20:44)
[2017-07-20] MEDS ORDERED: METOPROLOL TARTRATE 25 MG TABLET PO SCH (09:30)
--- NOTE | 2017-07-20 13:14 | Hospitalist Progress Note ---
Assessment and Plan (1) NSTEMI (non-ST elevated myocardial infarction) Status: Acute Assessment and plan: The patient's troponin is now 2.5, which shows decreased from the peak of 3. Will continue supportive care and the patient is ready to transfer to telemetry monitoring. Current Visit: Yes (2) End stage renal disease on dialysis Status: Acute Current Visit: Yes (3) Status post aortic valve replacement with bioprosthetic valve Status: Chronic Current Visit: No Hospitalist: Subjective Interval history: The patient does not complain of chest discomfort. The patient has been observed and does not have hypotension. The patient has no arrhythmia. The patient is ready for transfer to a monitored bed. Exam - Constitutional Vitals: Period Temp Pulse Resp BP Sys/Sheldon Pulse Ox Last 24 Hr 97.6 F-98.2 F 74-103 10-99 116-180/76-118 90-100 Exam: Constitutional System: Minimal distress. No tremulousness. Head: Normocephalic, atraumatic. Ears, Nose and Throat System: No evidence of Otitis or Mastoiditis. No epistaxis or discharge Eyes System: Pupils equal, round, and reactive. Extraocular muscles intact. Neck: Supple, without adenopathy, No jugular venous distention. No thyromegaly , neck mass, or prior surgery apparent. Respiratory System: Chest clear to auscultation. Cardiovascular System: Heart with regular rate and rhythm. No murmur. GI System: Abdomen soft, nontender. Normo active bowel sounds present. Musculoskeletal System: limbs with no pedal edema. Full distal pulses. Neurological System: No discernable sensory deficit. No aphasia Psychiatric System: Conversation is rational Results - Labs CBC & BMP: 07/20/17 04:10 07/20/17 04:10 Lab Results: I have reviewed the past 24 hour labs Specialty Discharge - Follow Up or Referrals Follow up with: Vazquez Newell MD [Physician] - 2 Weeks
--- NOTE | 2017-07-20 16:21 | Nephrology Progress Note ---
Nephrology - PN: Subj Interval history: Patient is resting comfortably no acute changes. In preparation for transferring to a regular floor. Continue with scheduled hemodialysis for this patient. Exam (PN)-Nephrology - Vital Signs Vital signs: Period Temp Pulse Resp BP Sys/Sheldon Pulse Ox Last 24 Hr 97.1 F-98.2 F 86-103 10-99 108-180/75-118 86-100 - General Appearance General appearance: well-developed, well-nourished EENT: ATNC Neck: supple Respiratory: clear Cardiology: regular rate, regular rhythm Gastrointestinal: normoactive bowel sounds, no tenderness, no guarding Neurologic: alert and oriented x3 Musculoskeletal: no clubbing Psychiatric: mood/affect appropriate - Lab 07/20/17 04:10 07/20/17 04:10 Most recent lab results Calcium 8.8 MG/DL (8.5-10.1) 07/20/17 04:10 Magnesium 2.1 MG/DL (1.8-2.4) 07/20/17 04:10 Assessment and Plan (1) Myeloma Status: Acute Current Visit: Yes (2) Acute renal failure Status: Acute Assessment and plan: Patient with end-stage renal disease. Will continue with scheduled hemodialysis. Current Visit: Yes (3) Chronic kidney disease (CKD), stage V Status: Chronic Assessment and plan: Acute on chronic kidney disease. Progressive renal failure. Hepatitis panel is negative. Have consulted surgery for dialysis catheter. Current Visit: Yes (4) Status post aortic valve replacement with bioprosthetic valve Status: Chronic Current Visit: No (5) BPH (benign prostatic hyperplasia) Status: Chronic Current Visit: No (6) GERD (gastroesophageal reflux disease) Status: Chronic Current Visit: No (7) End stage renal disease on dialysis Status: Chronic Assessment and plan: Make preparations for outpatient hemodialysis at the [facility] dialysis unit for Monday schedule. Current Visit: Yes Specialty Discharge - Follow Up or Referrals Follow up with: Vazquez Newell MD [Physician] - 2 Weeks
[2017-07-20] MEDS: CARVEDILOL 3.125 MG TABLET PO SCH (20:44)
[2017-07-20] MEDS ORDERED: ROSUVASTATIN 10 MG TABLET PO SCH (21:00)
[2017-07-21 04:46] LABS: Basophils % 0.2 % (0.0-0.8); Eosinophils # 0.2 10*3/uL (0.0-0.87); Eosinophils % 3.3 % (0.00-10.9); Hematocrit 27.1 VOL% (42.0-52.0); Hemoglobin 8.5 GM/DL (14.0-18.0); Immature Granulocytes % 1.6 %; Lymphocytes # 1.4 10*3/uL (1.4-4.0); Lymphocytes % 22.5 % (21.2-54.2); Mean Corpuscular HGB Conc 31.4 GM/DL (32-36); Mean Corpuscular Hemoglobin 31 PG (27-34); Mean Corpuscular Volume 99.3 FL (87-102); Mean Platelet Volume 10.5 FL (9.6-12.0); Monocytes # 0.9 10*3/uL (0.11-0.8); Monocytes % 14.7 % (1.7-12.7); Neutrophils # 3.6 10*3/uL (1.4-7.4); Neutrophils % 57.7 % (38.7-73.9); Platelet Count 155 T/CUMM (130-400); Red Blood Count 2.73 MC/CUMM (3.8-5.5); Red Cell Distribution Width 13.9 % (9.3-17.3); White Blood Count 6.1 T/CUMM (4-12)
[2017-07-21 05:27] LABS: Calcium 9.2 MG/DL (8.5-10.1); Magnesium 2.3 MG/DL (1.8-2.4); Potassium 4.5 MMOL/L (3.5-5.1); Risk Ratio 4.97; VLDL CHOLESTEROL 23.6 MG/DL
[2017-07-21 05:46] LABS: Troponin I Only 1.52 NG/ML (0.00-0.045)
[2017-07-21] MEDS: ROSUVASTATIN 20 MG TABLET PO SCH (09:09)
[2017-07-21] MEDS: TAMSULOSIN 0.4 MG CAPSULE PO SCH (09:09)
[2017-07-21] MEDS: CARVEDILOL 3.125 MG TABLET PO SCH ×2 (09:09→20:52)
[2017-07-21] MEDS: ASPIRIN CHEW 81 MG TABLET PO SCH (09:10)
[2017-07-21] MEDS: DOCUSATE SODIUM 100 MG CAPSULE PO SCH ×2 (09:10→20:52)
[2017-07-21] MEDS: PANTOPRAZOLE 40 MG TABLET PO SCH (09:10)
--- NOTE | 2017-07-21 09:14 | Cardiology Progress Note ---
Assessment and Plan - Time spent with patient Time spent with patient: Less than 30 minutes (1) End stage renal disease on dialysis Status: Chronic Assessment and plan: See plan of care listed below. Current Visit: Yes (2) NSTEMI (non-ST elevated myocardial infarction) Status: Acute Assessment and plan: See plan of care listed below. Current Visit: Yes (3) Myeloma Status: Acute Assessment and plan: See plan of care listed below. Current Visit: Yes (4) Hypertension Status: Chronic Assessment and plan: See plan of care listed below. Current Visit: Yes (5) Hyperlipidemia Status: Chronic Assessment and plan: See plan of care listed below. Current Visit: Yes (6) Status post aortic valve replacement with bioprosthetic valve Status: Chronic Assessment and plan: See plan of care listed below. 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 Michel SUMMARY: Mr. Troy is a 67 y/o BM who was admitted to the hospital with acute kidney failure and 8 month history of 50 pound weight loss with GERD-like symptoms progressing to nausea and vomiting. He underwent dialysis catheter placement. He has a history of hypertension, hyperlipidemia, aortic valve sclerosis status post bioprosthetic aortic valve replacement on 04/09/2015, BPH, GERD, chronic kidney disease. He was also recently diagnosed with myeloma and has elected not to undergo treatment for this. He was noted to have abnormal EKG with T-wave inversions inferiorly and elevated troponin. We were subsequently consulted to see him. His troponin elevation could possibly be due to end-stage renal disease and significant hypertension, particularly as he does not have symptoms to suggest acute coronary syndrome. Given the fact that he has no history of coronary artery disease and his anemia, we will continue to treat him medically with high intensity statin, baby aspirin if unable to tolerate, and beta-quentin therapy. 2016: Mr. Troy denies any complaints this morning. He continues to have some issues with bleeding from his left chest wall hemodialysis catheter. Sandbag is currently in place. He denies any chest pain or shortness of breath. He is tolerating the present medical therapy without difficulty. We obtained records from [place] including his [facility] which revealed normal right dominant coronary arteries, free of significant coronary artery disease. He could undergo an outpatient myocardial scan at a later date with follow up with Dr. Michel. He will also need a repeat echocardiogram in the next month or two to reassess his aortic valve and LV function. IMPRESSION/PLAN: 1. END STAGE RENAL DISEASE ON DIALYSIS: Nephrology is following. He has begun dialysis this admission. Creatinine 12.6 today. 2. ELEVATED TROPONIN: Records from [place] indicate he underwent LHC which revealed normal right dominant coronary arteries, free of significant coronary artery disease. His troponin elevation could possibly be due to end-stage renal disease and significant hypertension, particularly as he does not have symptoms to suggest acute coronary syndrome. Given the fact that he has no history of coronary artery disease and his anemia, we will continue to treat him medically with high intensity statin, baby aspirin if unable to tolerate, and beta- quentin therapy. 3. MYELOMA: According to the patient, he has elected not to proceed with chemotherapy at this time. He states he is really unsure of his prognosis and life span if he does not receive treatment. 4. HYPERTENSION: Currently adequately controlled. He was started on low dose beta quentin and Will continue to monitor and adjust accordingly. 5. HYPERLIPIDEMIA: Will start low dose lipid lowering agent and check lipid panel in AM. 6. S/P AVR: He is now status post bioprosthetic aortic valve replacement on 08/2015. Recent echocardiogram done 05/03/2017 reveals moderate LVH, EF 55%, grade 2 diastolic dysfunction, mildly enlarged left atrium, trace MR, well- seated bioprosthetic aortic valve with normal function. Exam (Progress Note) - Constitutional Vitals: Period Temp Pulse Resp BP Sys/Sheldon Pulse Ox Last 24 Hr 96.8 F-98.2 F 86-99 10-99 108-146/72-87 90-100 Exam: General appearance: Appears well. Pleasant and cooperative. Overweight, no acute distress. Head exam: Present: normal inspection, normocephalic, atraumatic. Absent: hematoma, laceration Eye exam: Present: EOMI. Absent: conjunctival injection, nystagmus, periorbital swelling, scleral icterus, laceration to eyelids, jaundice Pupils: Present: PERRL. Absent: constricted, dilated, fixed, irregular, unequal ENT exam: Present: normal exam, normal external ear exam, mucous membranes moist. Neck exam: Present: normal inspection, midline trachea. Absent: masses, lymphadenopathy, tenderness, thyromegaly, carotid bruit Respiratory exam: Present: clear to auscultation bilaterally. Absent: accessory muscle use, chest wall tenderness, rales, rhonchi, wheezing. Cardiovascular exam: Present: regular rate and rhythm, systolic murmur. Absent : gallop, JVD, rubs GI/Abdominal exam: Present: normal bowel sounds, soft. Absent: distended, firm , hernia, mass, tenderness. Extremities exam: Present: Normal Gait, No Clubbing, No Cyanosis, Upper Extr. Pulses 2+, Lower Extr. Pulses 2+, No edema. Capillary refill less than 3 seconds. Musculoskeletal: Present: No Fluid Collection, No Pain, Normal Range of Motion Back exam: Present: normal inspection. Absent: muscle spasm, vertebral tenderness Neurological exam: Present: awake, alert, oriented X3, Moves all extremities well without hemiparesis or paralysis. Grossly intact without resting or essential tremor Psychiatric exam: Present: normal affect, normal mood Skin exam: Present: normal color, warm, dry, intact. Left chest wall hemodialysis catheter dressing with mild bloody drainage. Absent: cyanosis, diaphoretic, rash, urticaria Result/EKG - Labs CBC & BMP: 07/21/17 04:01 07/21/17 04:01 Lab Results: I have reviewed the past 24 hour labs Labs: Laboratory Results - last 24 hr 07/21/17 07/21/17 07/21/17 04:01 04:01 04:01 WBC 6.1 RBC 2.73 L Hgb 8.5 L Hct 27.1 L MCV 99.3 MCH 31 MCHC 31.4 L RDW 13.9 Plt Count 155 MPV 10.5 Neut % (Auto) 57.7 Lymph % (Auto) 22.5 Newberry % (Auto) 14.7 H Eos % (Auto) 3.3 Baso % (Auto) 0.2 Neut # (Auto) 3.6 Lymph # (Auto) 1.4 Newberry # (Auto) 0.9 H Eos # (Auto) 0.2 Baso # (Auto) 0.0 Immature Gran % 1.6 Nucleated RBC % 0.0 Immature Gran # 0.10 Nucleated RBCs # 0.00 Immature Plt Fraction 0.0 Sodium 136 Potassium 4.5 Chloride 101 Carbon Dioxide 27 Anion Gap 12.5 BUN 45 H D Creatinine 12.60 H GFR Calculation 5 BUN/Creatinine Ratio 3.00 L Glucose 106 Calculated Osmolality 283.0 Calcium 9.2 Magnesium 2.3 Total Creatine Kinase 112 D Troponin I 1.520 H D Triglycerides 118 Cholesterol 144 LDL Cholesterol 82.0 VLDL Cholesterol 23.6 HDL Cholesterol 29 L Heart Disease Risk Ratio 4.97 - EKG EKG results: interpreted by me, sinus rhythm Specialty Discharge - Follow Up or Referrals Follow up with: Vazquez Newell MD [Physician] - 2 Weeks Jameson Michel MD [Physician] - 2 Weeks (Once discharged, follow up with Dr. Michel in 2-3 weeks with outpatient nuclear stress test. )
--- NOTE | 2017-07-21 12:22 | Nephrology Progress Note ---
Nephrology - PN: Subj Interval history: Patient is resting comfortably no acute changes. In preparation for transferring to a regular floor. Continue with scheduled hemodialysis for this patient. 07/21/2017 The patient is resting comfortably. Still has some oozing from his insertion of his dialysis catheter. Hemodynamically has been stable. Plan for hemodialysis on tomorrow. Exam (PN)-Nephrology - Vital Signs Vital signs: Period Temp Pulse Resp BP Sys/Sheldon Pulse Ox Last 24 Hr 96.8 F-97.7 F 86-99 16-28 108-146/72-87 93-100 - General Appearance General appearance: well-developed, well-nourished EENT: ATNC Neck: supple Respiratory: clear Cardiology: regular rate, regular rhythm Gastrointestinal: normoactive bowel sounds, no tenderness Neurologic: alert and oriented x3 - Lab 07/21/17 04:01 07/21/17 04:01 Most recent lab results Calcium 9.2 MG/DL (8.5-10.1) 07/21/17 04:01 Magnesium 2.3 MG/DL (1.8-2.4) 07/21/17 04:01 Assessment and Plan (1) Myeloma Status: Acute Current Visit: Yes (2) Acute renal failure Status: Acute Assessment and plan: Patient with end-stage renal disease. Will continue with scheduled hemodialysis. Current Visit: Yes (3) Chronic kidney disease (CKD), stage V Status: Chronic Assessment and plan: End-stage renal disease Current Visit: Yes (4) Status post aortic valve replacement with bioprosthetic valve Status: Chronic Current Visit: No (5) BPH (benign prostatic hyperplasia) Status: Chronic Current Visit: No (6) GERD (gastroesophageal reflux disease) Status: Chronic Current Visit: No (7) End stage renal disease on dialysis Status: Chronic Assessment and plan: Make preparations for outpatient hemodialysis at the [facility] dialysis unit for Monday schedule. Current Visit: Yes Specialty Discharge - Follow Up or Referrals Follow up with: Vazquez Newell MD [Physician] - 2 Weeks Jameson Michel MD [Physician] - 2 Weeks (Once discharged, follow up with Dr. Michel in 2-3 weeks with outpatient nuclear stress test. )
--- NOTE | 2017-07-21 14:23 | Hospitalist Progress Note ---
Assessment and Plan (1) NSTEMI (non-ST elevated myocardial infarction) Status: Acute Assessment and plan: Troponin is trending downward. Will continue supportive care and anticipate discharge home tomorrow after dialysis. Current Visit: Yes (2) End stage renal disease on dialysis Status: Chronic Current Visit: Yes (3) Status post aortic valve replacement with bioprosthetic valve Status: Chronic Current Visit: No Hospitalist: Subjective Interval history: Mr. Troy is feeling well today. He still has oozing from the dialysis catheter site but less than yesterday. Exam - Constitutional Vitals: Period Temp Pulse Resp BP Sys/Sheldon Pulse Ox Last 24 Hr 96.8 F-97.7 F 88-99 16-28 108-146/72-87 93-100 Exam: Constitutional System: Minimal distress. No tremulousness. Head: Normocephalic, atraumatic. Ears, Nose and Throat System: No evidence of Otitis or Mastoiditis. No epistaxis or discharge Eyes System: Pupils equal, round, and reactive. Extraocular muscles intact. Neck: Supple, without adenopathy, No jugular venous distention. No thyromegaly , neck mass, or prior surgery apparent. Respiratory System: Chest clear to auscultation. Cardiovascular System: Heart with regular rate and rhythm. No murmur. GI System: Abdomen soft, nontender. Normo active bowel sounds present. Musculoskeletal System: limbs with no pedal edema. Full distal pulses. Neurological System: No discernable sensory deficit. No aphasia Psychiatric System: Conversation is rational Results - Labs CBC & BMP: 07/21/17 04:01 07/21/17 04:01 Lab Results: I have reviewed the past 24 hour labs Specialty Discharge - Follow Up or Referrals Follow up with: Vazquez Newell MD [Physician] - 2 Weeks Jameson Michel MD [Physician] - 2 Weeks (Once discharged, schedule Lexiscan cardiolite 2-3 weeks after discharge and follow up with Dr. Michel 5-7 days after stress test. )
[2017-07-22 05:52] LABS: Basophils % 0.5 % (0.0-0.8); Eosinophils # 0.2 10*3/uL (0.0-0.87); Eosinophils % 2.7 % (0.00-10.9); Immature Granulocytes % 1.2 %; Immature Granulocytes Absolute 0.07 #; Lymphocytes # 1.4 10*3/uL (1.4-4.0); Lymphocytes % 24.4 % (21.2-54.2); Mean Corpuscular Hemoglobin 32 PG (27-34); Mean Corpuscular Volume 98.8 FL (87-102); Mean Platelet Volume 10.5 FL (9.6-12.0); Monocytes # 0.8 10*3/uL (0.11-0.8); Monocytes % 13.3 % (1.7-12.7); Neutrophils # 3.4 10*3/uL (1.4-7.4); Neutrophils % 57.9 % (38.7-73.9); Platelet Count 166 T/CUMM (130-400); Red Blood Count 2.53 MC/CUMM (3.8-5.5); Red Cell Distribution Width 13.8 % (9.3-17.3); White Blood Count 5.9 T/CUMM (4-12)
[2017-07-22 06:18] LABS: Calcium 9.1 MG/DL (8.5-10.1); Magnesium 2.3 MG/DL (1.8-2.4); Potassium 4.5 MMOL/L (3.5-5.1)
[2017-07-22] MEDS: ROSUVASTATIN 20 MG TABLET PO SCH (08:16)
[2017-07-22] MEDS: PANTOPRAZOLE 40 MG TABLET PO SCH (08:16)
[2017-07-22] MEDS: TAMSULOSIN 0.4 MG CAPSULE PO SCH (08:16)
[2017-07-22] MEDS: CARVEDILOL 3.125 MG TABLET PO SCH ×2 (08:16→22:35)
[2017-07-22] MEDS: DOCUSATE SODIUM 100 MG CAPSULE PO SCH ×2 (08:16→22:35)
--- NOTE | 2017-07-22 09:07 | Nephrology Progress Note ---
Nephrology - PN: Subj Interval history: Patient is seen on hemodialysis he is tolerating this well will continue his treatment unchanged. Assessment/plan 1. End-stage renal disease 2. Myeloma 3. Hypertension-we will continue Coreg-patient's blood pressures controlled 4. Anemia patient's hematocrit around 25% Exam (PN)-Nephrology - Vital Signs Vital signs: Period Temp Pulse Resp BP Sys/Sheldon Pulse Ox Last 24 Hr 97.1 F-98.5 F 86-88 18-20 98-140/58-83 97-100 - Lab 07/22/17 05:01 07/22/17 05:01 Most recent lab results Calcium 9.1 MG/DL (8.5-10.1) 07/22/17 05:01 Magnesium 2.3 MG/DL (1.8-2.4) 07/22/17 05:01 Specialty Discharge - Follow Up or Referrals Follow up with: Vazquez Newell MD [Physician] - 2 Weeks Jameson Michel MD [Physician] - 2 Weeks (Once discharged, schedule Lexiscan cardiolite 2-3 weeks after discharge and follow up with Dr. Michel 5-7 days after stress test. )
[2017-07-22] MEDS: ASPIRIN CHEW 81 MG TABLET PO SCH (09:57)
--- NOTE | 2017-07-22 11:50 | Hospitalist Progress Note ---
Assessment and Plan (1) End stage renal disease on dialysis Status: Chronic Assessment and plan: The patient has continued difficulty with the tunnel catheter. We are going to ask the general surgeon to evaluate today. Current Visit: Yes (2) NSTEMI (non-ST elevated myocardial infarction) Status: Acute Assessment and plan: Troponin is trending downward. Current Visit: Yes (3) Status post aortic valve replacement with bioprosthetic valve Status: Chronic Current Visit: No Hospitalist: Subjective Interval history: Mr. Troy had his third hemodialysis treatment today. The patient continues to have some oozing from the tunneled catheter site and some fluid collection which might be hematoma. The patient has no fever or chills. Exam - Constitutional Vitals: Period Temp Pulse Resp BP Sys/Sheldon Pulse Ox Last 24 Hr 97.1 F-98.5 F 86-88 18-20 98-140/58-83 97-100 Exam: Constitutional System: Minimal distress. No tremulousness. Head: Normocephalic, atraumatic. Ears, Nose and Throat System: No evidence of Otitis or Mastoiditis. No epistaxis or discharge Eyes System: Pupils equal, round, and reactive. Extraocular muscles intact. Neck: Supple, without adenopathy, No jugular venous distention. The patient has oozing from the tunnel catheter site on the left-hand side. There is some fluid collection underneath the compression dressing. Respiratory System: Chest clear to auscultation. Cardiovascular System: Heart with regular rate and rhythm. No murmur. GI System: Abdomen soft, nontender. Normo active bowel sounds present. Musculoskeletal System: limbs with no pedal edema. Full distal pulses. Neurological System: No discernable sensory deficit. No aphasia Psychiatric System: Conversation is rational Results - Labs CBC & BMP: 07/22/17 05:01 07/22/17 05:01 Lab Results: I have reviewed the past 24 hour labs Specialty Discharge - Follow Up or Referrals Follow up with: Vazquez Newell MD [Physician] - 2 Weeks Jameson Michel MD [Physician] - 2 Weeks (Once discharged, schedule Lexiscan cardiolite 2-3 weeks after discharge and follow up with Dr. Michel 5-7 days after stress test. )
[2017-07-22] MEDS ORDERED: LIDOCAINE 1% 20 ML VIAL IM ONE (14:18)
[2017-07-22] MEDS: ONDANSETRON 4 MG/2 ML VIAL IV PRN (17:37)
[2017-07-23] MEDS: ONDANSETRON 4 MG/2 ML VIAL IV PRN (07:26)
[2017-07-23] MEDS: PANTOPRAZOLE 40 MG TABLET PO SCH (08:22)
[2017-07-23] MEDS: DOCUSATE SODIUM 100 MG CAPSULE PO SCH (08:22)
[2017-07-23] MEDS: ASPIRIN CHEW 81 MG TABLET PO SCH (08:22)
[2017-07-23] MEDS: ROSUVASTATIN 20 MG TABLET PO SCH (08:22)
[2017-07-23] MEDS: CARVEDILOL 3.125 MG TABLET PO SCH (08:22)
[2017-07-23] MEDS: TAMSULOSIN 0.4 MG CAPSULE PO SCH (08:22)
--- NOTE | 2017-07-23 09:08 | Nephrology Progress Note ---
Nephrology - PN: Subj Interval history: Patient complains of early satiety and nausea and vomiting about 30 minutes after eating. He has gotten Zofran about 30 minutes prior to eating recently and this has helped his symptoms. Review of systems-pulmonary: Patient denies shortness of breath Physical exam general the patient chronically ill-appearing Assessment/plan 1. End-stage renal disease-we will continue hemodialysis support 2. Myeloma-patient was diagnosed with this in March or April, the patient refused therapy for this 3. Hypertension this is controlled Exam (PN)-Nephrology - Vital Signs Vital signs: Period Temp Pulse Resp BP Sys/Sheldon Pulse Ox Last 24 Hr 96.7 F-99.2 F 85-105 16-18 103-123/56-65 93-100 - Lab 07/22/17 05:01 07/22/17 05:01 Most recent lab results Calcium 9.1 MG/DL (8.5-10.1) 07/22/17 05:01 Magnesium 2.3 MG/DL (1.8-2.4) 07/22/17 05:01 Specialty Discharge - Follow Up or Referrals Follow up with: Vazquez Newell MD [Physician] - 2 Weeks Jameson Michel MD [Physician] - 2 Weeks (Once discharged, schedule Lexiscan cardiolite 2-3 weeks after discharge and follow up with Dr. Michel 5-7 days after stress test. )
--- NOTE | 2017-07-23 10:26 | Discharge Summary ---
Hospital Course - Hospital Course Hospital Course: Mr. Troy was admitted to the hospital due to the effects of essential hypertension and multiple myeloma causing end-stage renal disease and requiring the initiation of dialysis. A tunneled catheter was placed in the left chest using a subclavian approach by Dr. Nicole. The patient receives 3 dialysis treatments during the hospital stay. The patient had difficulty with oozing from the tunneled catheter site which improved prior to discharge. The patient has morning nausea which might be on account of the multiple myeloma. We will treat that with oral Phenergan as required. The patient's now improved and is ready for discharge home. The patient has previously declined therapy for multiple myeloma. On the date of discharge, chest clear and abdomen soft. Heart has regular rate and rhythm. Patient medications were reconciled upon admission, and again at the time of discharge. The patient was screened for tobacco use and found to be a previous smoker. The patient was given 4 minutes of tobacco avoidance education. The patient's medical decsion maker is themself, and when asked, they asked to be DNR. Discharge Time was 32 minutes, including final examination, evaluation and planning, education, reconciliation of medications, writing prescriptions, coordinating care with casework manager, and preparing discharge documentation. - Time spent with patient Time with patient DS: Greater than 30 minutes Time spent discussing smoking cessation with patient: 3 to 10 minutes Diagnosis - Discharge Diagnosis (1) End stage renal disease on dialysis Status: Chronic (2) NSTEMI (non-ST elevated myocardial infarction) Status: Resolved (3) Status post aortic valve replacement with bioprosthetic valve Status: Chronic Specialty Discharge - Follow Up or Referrals Follow up with: Vazquez Newell MD [Physician] - 2 Weeks Jameson Michel MD [Physician] - 2 Weeks (Once discharged, schedule Lexiscan cardiolite 2-3 weeks after discharge and follow up with Dr. Michel 5-7 days after stress test. ) Discharge Plan - Discharge Data Disposition: Disch To Home/Self Care Condition at Discharge: Stable Discharge Diet: regular diet Activity: resume usual activities as tolerated - Discharge Medications New Aspirin Chew Tab 81 mg PO DAILY #100 tablet Rosuvastatin [Crestor] 20 mg PO DAILY #30 tablet Carvedilol [Coreg] 3.125 mg PO BID #90 tablet Promethazine Tab [Phenergan Tab] 25 mg PO Q6H #30 tablet Continue Clorazepate [Tranxene] 7.5 mg PO BID Omeprazole 40 mg PO QAM Tamsulosin [Flomax] 0.4 mg PO QAM Discontinued Losartan [Cozaar] 50 mg PO QAM - Follow Up or Referral Follow Up: Vazquez Newell MD [Physician] - 2 Weeks Jameson Michel MD [Physician] - 2 Weeks (Once discharged, schedule Lexiscan cardiolite 2-3 weeks after discharge and follow up with Dr. Michel 5-7 days after stress test. ) - Forms/Instructions Exam - Constitutional Vitals: Period Temp Pulse Resp BP Sys/Sheldon Pulse Ox Last 24 Hr 96.7 F-99.2 F 85-105 16-18 103-123/56-65 93-100 DS: Provider Date of admission: 07/16/17 19:35 Primary care physician: . No PCP Attending physician on admission: Gonzales Diaz MD Consults: 07/16/17 21:14 Consult to Pastoral Services [CONS] Routine Comment: Pastoral Screen: Request Green [employer]umber Visit Critical Diagnosis Pastoral Screen Source of Request: Patient 07/17/17 09:12 Consult to Physician [CONS] Routine Comment: dialysis catheter Consulting Provider: Vazquez Newell Consulting Provider Notified: Yes When should Consulting Provider be notified: Now Consult to Specialist Group: Surgery When should Consulting Provider be notified: Now Person Notified: red Date Notified: 07/17/17 Time Notified: 09:24 Consult Notification Comment: patient npo for possible surgery today manuel modified order so pt would show on Dr. Newell's list 07/17/17 09:15 Consult to Physician [CONS] Routine Comment: Consulting Provider: Surjit Conrad Jr. Consulting Provider Notified: Yes When should Consulting Provider be notified: Now Consult to Specialist Group: Nephrology When should Consulting Provider be notified: Now Person Notified: KOMAL Date Notified: 07/17/17 Time Notified: 08:45 07/19/17 08:05 Consult to Physician [CONS] Routine Comment: NSTEMI Consulting Provider: Kika Faust Consulting Provider Notified: Yes When should Consulting Provider be notified: Now Person Notified: NOHEMY VERA NP Date Notified: 07/20/17 Time Notified: 08:00 Consult Notification Comment: WILL LET MD KNOW. 07/20/17 08:35 Consult to Physician [CONS] Routine Comment: Consulting Provider: Discharging clinician: Rivas Rendon MD
[2017-07-23 11:49] VITALS: BP 114/62
== END 2017-07-23 13:33 | disposition home or self-care (01) | DRG 682 ==
LOC: N.ED 16:43 → SUATTDRO 19:34 → N.EDINP 19:34 → SUATTDRO 19:35 → N.4E 20:13 → N.CC 07-18 13:21 → N.TELES 07-20 17:32
PROVIDERS: ADMIT Hospitalist; ATTEND Internal Medicine

== ENCOUNTER 2017-08-14 21:23 | Inpatient (IN) ==
[2017-08-14 23:00] LABS: Basophils % 0.6 % (0.0-0.8); Eosinophils # 0.2 10*3/uL (0.0-0.87); Eosinophils % 3.1 % (0.00-10.9); Hematocrit 36.9 VOL% (42.0-52.0); Immature Granulocytes % 0.8 %; Immature Granulocytes Absolute 0.04 #; Lymphocytes # 0.9 10*3/uL (1.4-4.0); Mean Corpuscular HGB Conc 32.5 GM/DL (32-36); Mean Corpuscular Hemoglobin 32 PG (27-34); Mean Corpuscular Volume 98.9 FL (87-102); Mean Platelet Volume 10.2 FL (9.6-12.0); Monocytes # 0.6 10*3/uL (0.11-0.8); Neutrophils % 63.5 % (38.7-73.9); Platelet Count 164 T/CUMM (130-400); Red Blood Count 3.73 MC/CUMM (3.8-5.5); Red Cell Distribution Width 15.1 % (9.3-17.3); White Blood Count 4.8 T/CUMM (4-12)
[2017-08-14 23:11] LABS: Alanine Aminotransferase 33 U/L (16-61); Albumin 2.7 G/DL (3.4-5.0); Alkaline Phosphatase 199 U/L (45-117); Amylase 175 U/L (25-115); Aspartate Amino Transferase 30 U/L (0-37); Bilirubin,Total < 0.39 MG/DL (0.2-1.0); Blood Urea Nitrogen 31 MG/DL (7-18); Glucose 150 MG/DL (74-106); Lactic Acid 1.2 MMOL/L (0.4-2.0); Magnesium 2.2 MG/DL (1.8-2.4); Osmolality,Calculated 277.2 MOS/KG (273-304); Potassium 3.2 MMOL/L (3.5-5.1); Sodium 134 MMOL/L (136-145); Total Protein 8.4 G/DL (6.4-8.3)
[2017-08-15] MEDS ORDERED: ONDANSETRON 4 MG/2 ML VIAL IV PRN (02:14)
[2017-08-15] MEDS ORDERED: POTASSIUM CHLORIDE RIDER 10 MEQ in PREMIX 1 EACH IV ONE (02:34)
[2017-08-15] MEDS ORDERED: MORPHINE 2 MG/1 ML SYRINGE IV PRN (03:28)
[2017-08-15] MEDS: SODIUM CHLORIDE 0.9% 1,000 ML IV SCH (05:58)
[2017-08-15 08:52] LABS: Basophils % 0.3 % (0.0-0.8); Eosinophils # 0.2 10*3/uL (0.0-0.87); Eosinophils % 2.6 % (0.00-10.9); Hematocrit 29.1 VOL% (42.0-52.0); Hemoglobin 9.2 GM/DL (14.0-18.0); Immature Granulocytes % 0.6 %; Immature Granulocytes Absolute 0.04 #; Lymphocytes # 1.6 10*3/uL (1.4-4.0); Mean Corpuscular HGB Conc 31.6 GM/DL (32-36); Mean Corpuscular Hemoglobin 32 PG (27-34); Mean Corpuscular Volume 102.5 FL (87-102); Mean Platelet Volume 10.1 FL (9.6-12.0); Monocytes # 0.9 10*3/uL (0.11-0.8); Monocytes % 13.6 % (1.7-12.7); NRBC # 0.02 10*3/uL; Neutrophils # 3.7 10*3/uL (1.4-7.4); Neutrophils % 57.9 % (38.7-73.9); Platelet Count 208 T/CUMM (130-400); Red Blood Count 2.84 MC/CUMM (3.8-5.5); Red Cell Distribution Width 15.6 % (9.3-17.3); White Blood Count 6.5 T/CUMM (4-12)
[2017-08-15] MEDS ORDERED: ENOXAPARIN 30 MG/0.3 ML SYRINGE SUBCUT SCH (09:00)
[2017-08-15 09:10] LABS: Albumin 2.6 G/DL (3.4-5.0); Bilirubin,Total 0.4 MG/DL (0.2-1.0); Calcium 8.9 MG/DL (8.5-10.1); Osmolality,Calculated 278.1 MOS/KG (273-304); Potassium 3.3 MMOL/L (3.5-5.1); Total Protein 7.9 G/DL (6.4-8.3)
[2017-08-15 09:13] LABS: Risk Ratio 4.48; VLDL CHOLESTEROL 33.2 MG/DL
[2017-08-15] MEDS: CYANOCOBALAMIN 500 MCG TABLET PO SCH (09:58)
[2017-08-15] MEDS: TRIAMCINOLONE 0.1% CREAM 15 GM TUBE TOP SCH ×3 (09:58→21:13)
[2017-08-15] MEDS: TAMSULOSIN 0.4 MG CAPSULE PO SCH (09:58)
[2017-08-15] MEDS: ROSUVASTATIN 20 MG TABLET PO SCH (09:58)
[2017-08-15] MEDS: CARVEDILOL 3.125 MG TABLET PO SCH ×2 (09:58→21:13)
[2017-08-15] MEDS: PANTOPRAZOLE 40 MG VIAL IV SCH (09:59)
[2017-08-15] MEDS: SEVELAMER CARBONATE 800 MG TABLET PO SCH ×3 (09:59→17:19)
[2017-08-15] MEDS ORDERED: POTASSIUM CHLORIDE 20 MEQ TABLET PO ONE ×2 (11:03→11:30)
[2017-08-15] MEDS ORDERED: PHENYLEPHRINE 1 MG/10 ML SYRINGE IV ONE (12:49)
[2017-08-15] MEDS ORDERED: PROPOFOL 200 MG/20 ML VIAL IV ONE (12:49)
[2017-08-15] MEDS ORDERED: LIDOCAINE 100 MG/5 ML SYRINGE ONE (12:49)
[2017-08-15] MEDS ORDERED: HEPARIN 10,000 UNIT/10 ML VIAL IV PRN (15:11)
[2017-08-15] MEDS ORDERED: EPOETIN ALFA 10,000 UNIT/1 ML VIAL IV PRN (15:12)
[2017-08-16] MEDS: SODIUM CHLORIDE 0.9% 1,000 ML IV SCH (03:09)
[2017-08-16 07:07] LABS: Basophils % 0.6 % (0.0-0.8); Eosinophils # 0.2 10*3/uL (0.0-0.87); Hematocrit 27.3 VOL% (42.0-52.0); Hemoglobin 8.5 GM/DL (14.0-18.0); Immature Granulocytes % 0.9 %; Immature Granulocytes Absolute 0.06 #; Mean Corpuscular HGB Conc 31.1 GM/DL (32-36); Mean Corpuscular Hemoglobin 32 PG (27-34); Mean Corpuscular Volume 102.2 FL (87-102); Mean Platelet Volume 10.2 FL (9.6-12.0); Monocytes # 0.8 10*3/uL (0.11-0.8); Neutrophils # 3.3 10*3/uL (1.4-7.4); Neutrophils % 51.5 % (38.7-73.9); Platelet Count 194 T/CUMM (130-400); Red Blood Count 2.67 MC/CUMM (3.8-5.5); Red Cell Distribution Width 15.8 % (9.3-17.3); White Blood Count 6.3 T/CUMM (4-12)
[2017-08-16 07:43] LABS: Albumin 2.4 G/DL (3.4-5.0); Bilirubin,Total 0.6 MG/DL (0.2-1.0); Calcium 8.8 MG/DL (8.5-10.1); Potassium 3.8 MMOL/L (3.5-5.1); Total Protein 7.7 G/DL (6.4-8.3)
[2017-08-16] MEDS: CYANOCOBALAMIN 500 MCG TABLET PO SCH (08:44)
[2017-08-16] MEDS: PANTOPRAZOLE 40 MG VIAL IV SCH (08:44)
[2017-08-16] MEDS: SEVELAMER CARBONATE 800 MG TABLET PO SCH ×3 (08:44→18:22)
[2017-08-16] MEDS: TAMSULOSIN 0.4 MG CAPSULE PO SCH (08:44)
[2017-08-16] MEDS: TRIAMCINOLONE 0.1% CREAM 15 GM TUBE TOP SCH ×3 (08:44→20:10)
[2017-08-16] MEDS: ROSUVASTATIN 20 MG TABLET PO SCH (08:44)
[2017-08-16] MEDS: CARVEDILOL 3.125 MG TABLET PO SCH ×2 (08:44→20:09)
[2017-08-16 22:39] LABS: Apearance,Urine CLOUDY (Clear); Bilirubin,Urine Negative (Negative); Blood, Urine Small mg/dL (Negative); Glucose,Urine (UA) 50 mg/dL (Negative); Ketones,Urine Negative (Negative); Nitrite,Urine Negative (Negative); Protein,Urine >=500 MG/DL; RBC,Urine 11 /HPF (0-4); Squamous Epithelial Cell,Urine Occasional /HPF (0-10); Urine Color Amber (Yellow); Urine Specific Gravity 1.022 (1.001-1.035); Urine Urobilinogen < 2.0 EU/DL (0.2-1.0); WBC,Urine 146 /HPF (0-6)
[2017-08-17 07:57] VITALS: BP 131/73
[2017-08-17] MEDS: CARVEDILOL 3.125 MG TABLET PO SCH (08:47)
[2017-08-17] MEDS: SEVELAMER CARBONATE 800 MG TABLET PO SCH ×2 (08:47→12:34)
[2017-08-17] MEDS: TAMSULOSIN 0.4 MG CAPSULE PO SCH (08:47)
[2017-08-17] MEDS: CYANOCOBALAMIN 500 MCG TABLET PO SCH (08:47)
[2017-08-17] MEDS: ROSUVASTATIN 20 MG TABLET PO SCH (08:47)
[2017-08-17] MEDS: PANTOPRAZOLE 40 MG VIAL IV SCH (08:47)
[2017-08-17] MEDS: TRIAMCINOLONE 0.1% CREAM 15 GM TUBE TOP SCH (08:51)
== END 2017-08-17 15:18 | disposition home or self-care (01) | DRG 438 ==
LOC: N.ED 21:23 → N.EDINP 08-15 01:59 → N.5E 08-15 02:48
PROVIDERS: ADMIT Internal Medicine; ATTEND Internal Medicine

== ENCOUNTER 2017-09-14 04:56 | Inpatient (IN) ==
[2017-09-14] MEDS ORDERED: cefTRIAXone 1,000 MG in SODIUM CHLORIDE 0.9% 100 ML IV STA (05:27)
[2017-09-14] MEDS ORDERED: SODIUM CHLORIDE 0.9% 500 ML IV STA (05:28)
[2017-09-14] MEDS ORDERED: ONDANSETRON 4 MG/2 ML VIAL IV STA (05:28)
[2017-09-14] MEDS ORDERED: ONDANSETRON 4 MG/2 ML VIAL ONE (05:56)
[2017-09-14] MEDS ORDERED: cefTRIAXone 1,000 MG VIAL ONE (05:56)
[2017-09-14 06:03] LABS: Basophils % 0.5 % (0.0-0.8); Eosinophils # 0.1 10*3/uL (0.0-0.87); Eosinophils % 1.3 % (0.00-10.9); Hematocrit 38.1 VOL% (42.0-52.0); Immature Granulocytes % 0.6 %; Immature Granulocytes Absolute 0.05 #; Lymphocytes # 2.4 10*3/uL (1.4-4.0); Lymphocytes % 29.5 % (21.2-54.2); Mean Corpuscular HGB Conc 31.5 GM/DL (32-36); Mean Corpuscular Hemoglobin 32 PG (27-34); Mean Corpuscular Volume 101.1 FL (87-102); Mean Platelet Volume 9.9 FL (9.6-12.0); Monocytes # 0.9 10*3/uL (0.11-0.8); Neutrophils # 4.7 10*3/uL (1.4-7.4); Neutrophils % 57.1 % (38.7-73.9); Platelet Count 221 T/CUMM (130-400); Red Blood Count 3.77 MC/CUMM (3.8-5.5); Red Cell Distribution Width 15.7 % (9.3-17.3); White Blood Count 8.3 T/CUMM (4-12)
[2017-09-14 06:15] LABS: INR 1.2; PT Patient Result 12.8 SECS; Partial Thromboplastin Time 31.1 SECS (0-40)
[2017-09-14 06:24] LABS: Magnesium 2.1 MG/DL (1.8-2.4)
[2017-09-14 06:35] LABS: Troponin I Only 0.443 NG/ML (0.00-0.045)
[2017-09-14] MEDS ORDERED: SODIUM CHLORIDE 0.9% 500 ML IV ONE (06:36)
[2017-09-14] MEDS ORDERED: NOREPINEPHRINE 4 MG/4 ML VIAL IV ONE ×2 (06:57→23:23)
[2017-09-14] MEDS: NOREPINEPHRINE 8 MG in SODIUM CHLORIDE 0.9% 242 ML IV SCH ×2 (07:00→23:45)
[2017-09-14] MEDS ORDERED: PIPERACILLIN/TAZOBACTAM 3,375 MG VIAL IV ONE (08:09)
[2017-09-14] MEDS: PIPERACILLIN/TAZOBACTAM 3,375 MG in SODIUM CHLORIDE 0.9% 100 ML IV SCH ×3 (08:11→18:25)
[2017-09-14 08:15] LABS: CKMB % 3.9 %
[2017-09-14 08:16] LABS: Troponin I Only 0.449 NG/ML (0.00-0.045)
[2017-09-14] MEDS: TAMSULOSIN 0.4 MG CAPSULE PO SCH (09:48)
[2017-09-14] MEDS: ROSUVASTATIN 20 MG TABLET PO SCH (09:48)
[2017-09-14] MEDS: PANTOPRAZOLE 40 MG VIAL IV SCH ×2 (09:48→20:59)
[2017-09-14] MEDS: CYANOCOBALAMIN 500 MCG TABLET PO SCH (09:48)
[2017-09-14] MEDS ORDERED: VANCOMYCIN INJ 1,500 MG in SODIUM CHLORIDE 0.9% 500 ML IV PRN (10:39)
[2017-09-14] MEDS ORDERED: VANCOMYCIN INJ 1,500 MG in SODIUM CHLORIDE 0.9% 500 ML IV ONE (12:00)
[2017-09-14] MEDS: TRIAMCINOLONE 0.1% CREAM 15 GM TUBE TOP SCH ×3 (12:55→20:59)
[2017-09-14] MEDS: SEVELAMER CARBONATE 800 MG TABLET PO SCH ×2 (12:57→16:54)
[2017-09-14] MEDS: MIDODRINE 5 MG TABLET PO SCH ×2 (14:52→20:59)
[2017-09-15] MEDS: PIPERACILLIN/TAZOBACTAM 3,375 MG in SODIUM CHLORIDE 0.9% 100 ML IV SCH ×3 (01:41→18:51)
[2017-09-15 04:03] LABS: Basophils # 0.1 10*3/uL (0.0-0.2); Basophils % 0.6 % (0.0-0.8); Eosinophils # 0.2 10*3/uL (0.0-0.87); Hematocrit 34.6 VOL% (42.0-52.0); Hemoglobin 10.7 GM/DL (14.0-18.0); Immature Granulocytes % 1.1 %; Lymphocytes # 2.4 10*3/uL (1.4-4.0); Lymphocytes % 25.3 % (21.2-54.2); Mean Corpuscular HGB Conc 30.9 GM/DL (32-36); Mean Corpuscular Hemoglobin 32 PG (27-34); Mean Corpuscular Volume 102.7 FL (87-102); Mean Platelet Volume 9.9 FL (9.6-12.0); Monocytes # 1.6 10*3/uL (0.11-0.8); Monocytes % 16.9 % (1.7-12.7); Neutrophils # 5.1 10*3/uL (1.4-7.4); Neutrophils % 54.1 % (38.7-73.9); Platelet Count 222 T/CUMM (130-400); Red Blood Count 3.37 MC/CUMM (3.8-5.5); Red Cell Distribution Width 15.6 % (9.3-17.3); White Blood Count 9.4 T/CUMM (4-12)
[2017-09-15 04:51] LABS: Albumin 2.1 G/DL (3.4-5.0); Calcium 8.6 MG/DL (8.5-10.1); Osmolality,Calculated 269.2 MOS/KG (273-304); Potassium 3.5 MMOL/L (3.5-5.1)
[2017-09-15 05:10] LABS: Risk Ratio 9.12; VLDL CHOLESTEROL 42.8 MG/DL
[2017-09-15 05:53] LABS: Band Neutrophils 3 % (0-10); Eosinophils 1 % (0-10); Hypochromasia 1+; Lymphocytes 21 % (20-55); Platelet Estimate Normal; Segmented Neutrophils 63 % (50-85); Total Cells Counted 100
[2017-09-15] MEDS: NOREPINEPHRINE 8 MG in SODIUM CHLORIDE 0.9% 242 ML IV SCH ×2 (08:42→19:56)
[2017-09-15] MEDS: PANTOPRAZOLE 40 MG VIAL IV SCH ×2 (08:51→21:58)
[2017-09-15] MEDS: ROSUVASTATIN 20 MG TABLET PO SCH (08:52)
[2017-09-15] MEDS: MIDODRINE 5 MG TABLET PO SCH ×3 (08:52→21:57)
[2017-09-15] MEDS: SEVELAMER CARBONATE 800 MG TABLET PO SCH ×3 (08:52→16:02)
[2017-09-15] MEDS: TAMSULOSIN 0.4 MG CAPSULE PO SCH (08:52)
[2017-09-15] MEDS: TRIAMCINOLONE 0.1% CREAM 15 GM TUBE TOP SCH ×4 (08:53→21:58)
[2017-09-15] MEDS: CYANOCOBALAMIN 500 MCG TABLET PO SCH (09:54)
[2017-09-15] MEDS ORDERED: ALBUMIN 25% 12.5 GM in PREMIX 1 EACH IV ONE (10:55)
[2017-09-15] MEDS ORDERED: MIDODRINE 5 MG TABLET PO ONE (10:57)
[2017-09-16] MEDS: PIPERACILLIN/TAZOBACTAM 3,375 MG in SODIUM CHLORIDE 0.9% 100 ML IV SCH ×3 (02:52→17:16)
[2017-09-16 05:50] LABS: Basophils # 0.1 10*3/uL (0.0-0.2); Basophils % 0.8 % (0.0-0.8); Eosinophils # 0.2 10*3/uL (0.0-0.87); Eosinophils % 2.7 % (0.00-10.9); Hemoglobin 11.1 GM/DL (14.0-18.0); Immature Granulocytes % 0.8 %; Immature Granulocytes Absolute 0.06 #; Lymphocytes # 2.1 10*3/uL (1.4-4.0); Mean Corpuscular HGB Conc 31.7 GM/DL (32-36); Mean Corpuscular Hemoglobin 32 PG (27-34); Mean Corpuscular Volume 101.4 FL (87-102); Mean Platelet Volume 9.3 FL (9.6-12.0); Monocytes # 1.2 10*3/uL (0.11-0.8); Monocytes % 16.1 % (1.7-12.7); Neutrophils % 52.6 % (38.7-73.9); Platelet Count 199 T/CUMM (130-400); Red Blood Count 3.45 MC/CUMM (3.8-5.5); Red Cell Distribution Width 15.6 % (9.3-17.3); White Blood Count 7.7 T/CUMM (4-12)
[2017-09-16 06:45] LABS: Calcium 8.9 MG/DL (8.5-10.1); Magnesium 2.1 MG/DL (1.8-2.4); Osmolality,Calculated 273.1 MOS/KG (273-304); Potassium 3.3 MMOL/L (3.5-5.1)
[2017-09-16 08:01] LABS: Band Neutrophils 1 % (0-10); Eosinophils 8 % (0-10); Giant Platelets Few; Hypochromasia 1+; Lymphocytes 20 % (20-55); Ovalocytes Slight; Platelet Estimate Adequate; Segmented Neutrophils 59 % (50-85); Total Cells Counted 100
[2017-09-16] MEDS: SEVELAMER CARBONATE 800 MG TABLET PO SCH ×3 (08:49→17:00)
[2017-09-16] MEDS: CYANOCOBALAMIN 500 MCG TABLET PO SCH (08:49)
[2017-09-16] MEDS: ROSUVASTATIN 20 MG TABLET PO SCH (08:49)
[2017-09-16] MEDS: PANTOPRAZOLE 40 MG VIAL IV SCH ×2 (08:49→21:40)
[2017-09-16] MEDS: TRIAMCINOLONE 0.1% CREAM 15 GM TUBE TOP SCH ×3 (08:50→21:41)
[2017-09-16] MEDS: TAMSULOSIN 0.4 MG CAPSULE PO SCH (08:50)
[2017-09-16] MEDS: MIDODRINE 5 MG TABLET PO SCH ×3 (08:50→21:39)
[2017-09-16] MEDS: NOREPINEPHRINE 8 MG in SODIUM CHLORIDE 0.9% 242 ML IV SCH (13:12)
[2017-09-16] MEDS: VENLAFAXINE 75 MG TABLET PO SCH ×2 (15:29→21:40)
[2017-09-16] MEDS: ONDANSETRON 4 MG/2 ML VIAL IV PRN (17:33)
[2017-09-16] MEDS ORDERED: POTASSIUM BICARB EFFERVESCENT 25 MEQ TABLET PO ONE (17:58)
[2017-09-16] MEDS ORDERED: POTASSIUM CHLORIDE 20 MEQ TABLET PO ONE (18:30)
[2017-09-17] MEDS: ONDANSETRON 4 MG/2 ML VIAL IV PRN ×2 (00:31→08:14)
[2017-09-17] MEDS: PIPERACILLIN/TAZOBACTAM 3,375 MG in SODIUM CHLORIDE 0.9% 100 ML IV SCH ×3 (03:37→18:13)
[2017-09-17] MEDS: NOREPINEPHRINE 8 MG in SODIUM CHLORIDE 0.9% 242 ML IV SCH (05:59)
[2017-09-17 06:04] LABS: Basophils # 0.1 10*3/uL (0.0-0.2); Basophils % 0.6 % (0.0-0.8); Eosinophils # 0.1 10*3/uL (0.0-0.87); Eosinophils % 1.5 % (0.00-10.9); Hematocrit 33.1 VOL% (42.0-52.0); Hemoglobin 10.5 GM/DL (14.0-18.0); Immature Granulocytes % 1.3 %; Immature Granulocytes Absolute 0.12 #; Lymphocytes # 2.1 10*3/uL (1.4-4.0); Lymphocytes % 22.4 % (21.2-54.2); Mean Corpuscular HGB Conc 31.7 GM/DL (32-36); Mean Corpuscular Hemoglobin 32 PG (27-34); Mean Corpuscular Volume 101.8 FL (87-102); Monocytes # 1.4 10*3/uL (0.11-0.8); Monocytes % 14.4 % (1.7-12.7); NRBC # 0.03 10*3/uL; Neutrophils # 5.7 10*3/uL (1.4-7.4); Neutrophils % 59.8 % (38.7-73.9); Platelet Count 227 T/CUMM (130-400); Red Blood Count 3.25 MC/CUMM (3.8-5.5); Red Cell Distribution Width 15.8 % (9.3-17.3); White Blood Count 9.5 T/CUMM (4-12)
[2017-09-17 06:45] LABS: Bilirubin,Total 1.3 MG/DL (0.2-1.0); Calcium 8.8 MG/DL (8.5-10.1); Magnesium 1.9 MG/DL (1.8-2.4); Potassium 3.8 MMOL/L (3.5-5.1)
[2017-09-17] MEDS: PANTOPRAZOLE 40 MG VIAL IV SCH ×2 (08:15→21:16)
[2017-09-17] MEDS: VENLAFAXINE 75 MG TABLET PO SCH ×2 (08:42→21:16)
[2017-09-17] MEDS: MIDODRINE 5 MG TABLET PO SCH ×3 (08:43→21:17)
[2017-09-17] MEDS: ROSUVASTATIN 20 MG TABLET PO SCH (08:43)
[2017-09-17] MEDS: CYANOCOBALAMIN 500 MCG TABLET PO SCH (08:43)
[2017-09-17] MEDS: SEVELAMER CARBONATE 800 MG TABLET PO SCH ×3 (08:44→18:13)
[2017-09-17] MEDS: TAMSULOSIN 0.4 MG CAPSULE PO SCH (08:46)
[2017-09-17] MEDS: TRIAMCINOLONE 0.1% CREAM 15 GM TUBE TOP SCH ×3 (08:48→23:40)
[2017-09-17] MEDS ORDERED: MAGNESIUM SULF RIDER 2 GM in PREMIX 1 EACH IV PRN (13:15)
[2017-09-17] MEDS ORDERED: MAGNESIUM SULF RIDER 4 GM in PREMIX 1 EACH IV PRN (13:15)
[2017-09-18] MEDS: NOREPINEPHRINE 8 MG in SODIUM CHLORIDE 0.9% 242 ML IV SCH ×2 (01:37→21:45)
[2017-09-18] MEDS: PIPERACILLIN/TAZOBACTAM 3,375 MG in SODIUM CHLORIDE 0.9% 100 ML IV SCH ×2 (01:49→10:05)
[2017-09-18 05:27] LABS: Basophils # 0.1 10*3/uL (0.0-0.2); Basophils % 0.7 % (0.0-0.8); Eosinophils # 0.1 10*3/uL (0.0-0.87); Eosinophils % 1.3 % (0.00-10.9); Hemoglobin 10.7 GM/DL (14.0-18.0); Immature Granulocytes % 0.6 %; Immature Granulocytes Absolute 0.05 #; Lymphocytes # 1.4 10*3/uL (1.4-4.0); Lymphocytes % 16.9 % (21.2-54.2); Mean Corpuscular HGB Conc 32.4 GM/DL (32-36); Mean Corpuscular Hemoglobin 33 PG (27-34); Mean Corpuscular Volume 100.3 FL (87-102); Mean Platelet Volume 9.4 FL (9.6-12.0); Monocytes # 1.2 10*3/uL (0.11-0.8); Monocytes % 14.3 % (1.7-12.7); NRBC # 0.02 10*3/uL; Neutrophils # 5.5 10*3/uL (1.4-7.4); Neutrophils % 66.2 % (38.7-73.9); Platelet Count 231 T/CUMM (130-400); Red Blood Count 3.29 MC/CUMM (3.8-5.5); White Blood Count 8.3 T/CUMM (4-12)
[2017-09-18 05:51] LABS: Magnesium 2.1 MG/DL (1.8-2.4); Osmolality,Calculated 279.8 MOS/KG (273-304); Potassium 3.7 MMOL/L (3.5-5.1)
[2017-09-18] MEDS: PANTOPRAZOLE 40 MG VIAL IV SCH ×2 (09:15→21:46)
[2017-09-18] MEDS: URSODIOL 300 MG CAPSULE PO SCH ×2 (09:15→21:45)
[2017-09-18] MEDS: ROSUVASTATIN 20 MG TABLET PO SCH (09:15)
[2017-09-18] MEDS: VENLAFAXINE 75 MG TABLET PO SCH ×2 (09:15→21:45)
[2017-09-18] MEDS: SEVELAMER CARBONATE 800 MG TABLET PO SCH ×3 (09:15→17:43)
[2017-09-18] MEDS: TAMSULOSIN 0.4 MG CAPSULE PO SCH (09:16)
[2017-09-18] MEDS: MIDODRINE 5 MG TABLET PO SCH ×3 (09:16→21:45)
[2017-09-18] MEDS: CYANOCOBALAMIN 500 MCG TABLET PO SCH (09:16)
[2017-09-18] MEDS: TRIAMCINOLONE 0.1% CREAM 15 GM TUBE TOP SCH ×3 (09:16→21:49)
[2017-09-18] MEDS: ONDANSETRON 4 MG/2 ML VIAL IV PRN (20:51)
[2017-09-19] MEDS: NOREPINEPHRINE 8 MG in SODIUM CHLORIDE 0.9% 242 ML IV SCH (08:00)
[2017-09-19] MEDS: CYANOCOBALAMIN 500 MCG TABLET PO SCH (08:30)
[2017-09-19] MEDS: ROSUVASTATIN 20 MG TABLET PO SCH (08:30)
[2017-09-19] MEDS: URSODIOL 300 MG CAPSULE PO SCH ×2 (08:30→21:18)
[2017-09-19] MEDS: SEVELAMER CARBONATE 800 MG TABLET PO SCH ×3 (08:30→17:19)
[2017-09-19] MEDS: TAMSULOSIN 0.4 MG CAPSULE PO SCH (08:30)
[2017-09-19] MEDS: MIDODRINE 5 MG TABLET PO SCH ×3 (08:30→21:18)
[2017-09-19] MEDS: PANTOPRAZOLE 40 MG VIAL IV SCH ×2 (08:30→21:18)
[2017-09-19] MEDS: TRIAMCINOLONE 0.1% CREAM 15 GM TUBE TOP SCH ×3 (08:31→21:17)
[2017-09-19] MEDS: ONDANSETRON 4 MG/2 ML VIAL IV PRN ×2 (08:38→15:08)
[2017-09-19] MEDS ORDERED: HEPARIN 10,000 UNIT/10 ML VIAL IV PRN (09:51)
[2017-09-19] MEDS: VENLAFAXINE 75 MG TABLET PO SCH ×2 (10:00→21:17)
[2017-09-20] MEDS: NOREPINEPHRINE 8 MG in SODIUM CHLORIDE 0.9% 242 ML IV SCH (02:11)
[2017-09-20] MEDS: CYANOCOBALAMIN 500 MCG TABLET PO SCH (09:08)
[2017-09-20] MEDS: SEVELAMER CARBONATE 800 MG TABLET PO SCH ×3 (09:08→16:36)
[2017-09-20] MEDS: ROSUVASTATIN 20 MG TABLET PO SCH (09:08)
[2017-09-20] MEDS: VENLAFAXINE 75 MG TABLET PO SCH ×2 (09:08→22:25)
[2017-09-20] MEDS: URSODIOL 300 MG CAPSULE PO SCH ×2 (09:08→22:25)
[2017-09-20] MEDS: PANTOPRAZOLE 40 MG VIAL IV SCH ×2 (09:09→22:26)
[2017-09-20] MEDS: TAMSULOSIN 0.4 MG CAPSULE PO SCH (09:09)
[2017-09-20] MEDS: MIDODRINE 5 MG TABLET PO SCH ×3 (09:09→22:25)
[2017-09-20] MEDS: TRIAMCINOLONE 0.1% CREAM 15 GM TUBE TOP SCH ×3 (09:17→22:26)
[2017-09-20] MEDS: METOCLOPRAMIDE 10 MG/2 ML VIAL IV SCH (18:45)
[2017-09-21] MEDS: METOCLOPRAMIDE 10 MG/2 ML VIAL IV SCH ×5 (00:29→23:22)
[2017-09-21 04:53] LABS: Hematocrit 32.7 VOL% (42.0-52.0); Hemoglobin 10.6 GM/DL (14.0-18.0)
[2017-09-21] MEDS: NOREPINEPHRINE 8 MG in SODIUM CHLORIDE 0.9% 242 ML IV SCH ×2 (05:01→07:34)
[2017-09-21] MEDS: SEVELAMER CARBONATE 800 MG TABLET PO SCH ×3 (08:17→17:26)
[2017-09-21] MEDS: VENLAFAXINE 75 MG TABLET PO SCH ×2 (08:18→20:23)
[2017-09-21] MEDS: PANTOPRAZOLE 40 MG VIAL IV SCH ×2 (08:18→20:24)
[2017-09-21] MEDS: TAMSULOSIN 0.4 MG CAPSULE PO SCH (08:18)
[2017-09-21] MEDS: MIDODRINE 5 MG TABLET PO SCH ×3 (08:18→20:23)
[2017-09-21] MEDS: URSODIOL 300 MG CAPSULE PO SCH ×2 (08:18→20:24)
[2017-09-21] MEDS: ROSUVASTATIN 20 MG TABLET PO SCH (08:18)
[2017-09-21] MEDS: CYANOCOBALAMIN 500 MCG TABLET PO SCH (08:19)
[2017-09-21] MEDS: TRIAMCINOLONE 0.1% CREAM 15 GM TUBE TOP SCH ×3 (08:20→20:29)
[2017-09-22] MEDS: METOCLOPRAMIDE 10 MG/2 ML VIAL IV SCH ×4 (05:13→23:14)
[2017-09-22] MEDS: SEVELAMER CARBONATE 800 MG TABLET PO SCH ×3 (07:57→16:55)
[2017-09-22] MEDS: MIDODRINE 5 MG TABLET PO SCH ×3 (09:27→20:10)
[2017-09-22] MEDS: URSODIOL 300 MG CAPSULE PO SCH ×2 (09:27→20:10)
[2017-09-22] MEDS: VENLAFAXINE 75 MG TABLET PO SCH ×2 (09:27→20:12)
[2017-09-22] MEDS: PANTOPRAZOLE 40 MG VIAL IV SCH ×2 (09:27→20:13)
[2017-09-22] MEDS: TAMSULOSIN 0.4 MG CAPSULE PO SCH (09:27)
[2017-09-22] MEDS: ROSUVASTATIN 20 MG TABLET PO SCH (09:27)
[2017-09-22] MEDS: TRIAMCINOLONE 0.1% CREAM 15 GM TUBE TOP SCH ×3 (09:29→20:14)
[2017-09-22] MEDS: CYANOCOBALAMIN 500 MCG TABLET PO SCH (09:32)
[2017-09-22] MEDS: ACETAMINOPHEN 325 MG TABLET PO PRN (13:38)
[2017-09-22] MEDS: FLUDROCORTISONE 0.1 MG TABLET PO SCH (16:20)
[2017-09-22] MEDS: NOREPINEPHRINE 8 MG in SODIUM CHLORIDE 0.9% 242 ML IV SCH ×2 (18:43→20:49)
[2017-09-22] MEDS: ONDANSETRON 4 MG/2 ML VIAL IV PRN (23:15)
[2017-09-23 05:44] LABS: Basophils # 0.1 10*3/uL (0.0-0.2); Basophils % 0.7 % (0.0-0.8); Eosinophils # 0.2 10*3/uL (0.0-0.87); Eosinophils % 1.8 % (0.00-10.9); Hematocrit 30.8 VOL% (42.0-52.0); Hemoglobin 9.8 GM/DL (14.0-18.0); Immature Granulocytes % 1.6 %; Immature Granulocytes Absolute 0.15 #; Lymphocytes # 2.1 10*3/uL (1.4-4.0); Lymphocytes % 22.6 % (21.2-54.2); Mean Corpuscular HGB Conc 31.8 GM/DL (32-36); Mean Corpuscular Hemoglobin 32 PG (27-34); Mean Platelet Volume 9.6 FL (9.6-12.0); Monocytes # 1.4 10*3/uL (0.11-0.8); Monocytes % 15.3 % (1.7-12.7); NRBC # 0.06 10*3/uL; Neutrophils # 5.4 10*3/uL (1.4-7.4); Platelet Count 181 T/CUMM (130-400); Red Blood Count 3.08 MC/CUMM (3.8-5.5); Red Cell Distribution Width 17.2 % (9.3-17.3); White Blood Count 9.2 T/CUMM (4-12)
[2017-09-23] MEDS: METOCLOPRAMIDE 10 MG/2 ML VIAL IV SCH ×3 (05:53→17:01)
[2017-09-23 06:14] LABS: Bilirubin,Direct 1.42 MG/DL (0.0-0.20); Bilirubin,Indirect 1.1 MG/DL (0.0-1.0); Bilirubin,Total 2.5 MG/DL (0.2-1.0); Total Protein 6.9 G/DL (6.4-8.3)
[2017-09-23] MEDS: NOREPINEPHRINE 8 MG in SODIUM CHLORIDE 0.9% 242 ML IV SCH ×2 (07:20→20:54)
[2017-09-23] MEDS: ONDANSETRON 4 MG/2 ML VIAL IV PRN (08:34)
[2017-09-23] MEDS: SEVELAMER CARBONATE 800 MG TABLET PO SCH ×3 (08:35→17:01)
[2017-09-23] MEDS: TAMSULOSIN 0.4 MG CAPSULE PO SCH (08:35)
[2017-09-23] MEDS: CYANOCOBALAMIN 500 MCG TABLET PO SCH (08:35)
[2017-09-23] MEDS: VENLAFAXINE 75 MG TABLET PO SCH ×2 (08:35→20:22)
[2017-09-23] MEDS: ROSUVASTATIN 20 MG TABLET PO SCH (08:35)
[2017-09-23] MEDS: URSODIOL 300 MG CAPSULE PO SCH ×2 (08:35→20:22)
[2017-09-23] MEDS: TRIAMCINOLONE 0.1% CREAM 15 GM TUBE TOP SCH ×3 (08:35→20:29)
[2017-09-23] MEDS: MIDODRINE 5 MG TABLET PO SCH ×3 (08:35→20:22)
[2017-09-23] MEDS: FLUDROCORTISONE 0.1 MG TABLET PO SCH (08:35)
[2017-09-23] MEDS: PANTOPRAZOLE 40 MG VIAL IV SCH ×2 (08:36→20:22)
[2017-09-23] MEDS: AMINO ACIDS/DEXT/LYTES 4.25-5% 2,000 ML IV SCH (17:01)
[2017-09-24] MEDS: METOCLOPRAMIDE 10 MG/2 ML VIAL IV SCH ×4 (00:41→17:15)
[2017-09-24] MEDS: ONDANSETRON 4 MG/2 ML VIAL IV PRN ×4 (01:02→21:39)
[2017-09-24] MEDS: NOREPINEPHRINE 8 MG in SODIUM CHLORIDE 0.9% 242 ML IV SCH (07:52)
[2017-09-24] MEDS: PANTOPRAZOLE 40 MG VIAL IV SCH ×2 (08:24→21:33)
[2017-09-24] MEDS: TRIAMCINOLONE 0.1% CREAM 15 GM TUBE TOP SCH ×3 (08:36→21:42)
[2017-09-24] MEDS: SEVELAMER CARBONATE 800 MG TABLET PO SCH ×3 (09:18→17:15)
[2017-09-24] MEDS: CYANOCOBALAMIN 500 MCG TABLET PO SCH (09:54)
[2017-09-24] MEDS: URSODIOL 300 MG CAPSULE PO SCH ×2 (09:54→21:32)
[2017-09-24] MEDS: TAMSULOSIN 0.4 MG CAPSULE PO SCH (09:54)
[2017-09-24] MEDS: ROSUVASTATIN 20 MG TABLET PO SCH (09:54)
[2017-09-24] MEDS: MIDODRINE 5 MG TABLET PO SCH ×3 (09:54→21:32)
[2017-09-24] MEDS: FLUDROCORTISONE 0.1 MG TABLET PO SCH (09:54)
[2017-09-24] MEDS: VENLAFAXINE 75 MG TABLET PO SCH ×2 (09:54→21:32)
[2017-09-24] MEDS: AMINO ACIDS/DEXT/LYTES 4.25-5% 2,000 ML IV SCH (17:24)
[2017-09-25] MEDS: METOCLOPRAMIDE 10 MG/2 ML VIAL IV SCH ×4 (01:21→17:52)
[2017-09-25 05:53] LABS: Albumin 1.8 G/DL (3.4-5.0); Bilirubin,Direct 1.44 MG/DL (0.0-0.20); Bilirubin,Indirect 0.5 MG/DL (0.0-1.0); Bilirubin,Total 1.9 MG/DL (0.2-1.0); Total Protein 6.7 G/DL (6.4-8.3)
[2017-09-25 07:29] LABS: Basophils % 0.5 % (0.0-0.8); Eosinophils # 0.1 10*3/uL (0.0-0.87); Eosinophils % 1.5 % (0.00-10.9); Hematocrit 29.6 VOL% (42.0-52.0); Hemoglobin 9.5 GM/DL (14.0-18.0); Immature Granulocytes % 1.8 %; Immature Granulocytes Absolute 0.15 #; Lymphocytes # 1.9 10*3/uL (1.4-4.0); Lymphocytes % 23.1 % (21.2-54.2); Mean Corpuscular HGB Conc 32.1 GM/DL (32-36); Mean Corpuscular Hemoglobin 32 PG (27-34); Mean Corpuscular Volume 99.7 FL (87-102); Mean Platelet Volume 9.2 FL (9.6-12.0); Monocytes # 1.5 10*3/uL (0.11-0.8); Monocytes % 18.3 % (1.7-12.7); NRBC # 0.09 10*3/uL; Neutrophils # 4.5 10*3/uL (1.4-7.4); Neutrophils % 54.8 % (38.7-73.9); Platelet Count 156 T/CUMM (130-400); Red Blood Count 2.97 MC/CUMM (3.8-5.5); Red Cell Distribution Width 17.9 % (9.3-17.3); White Blood Count 8.3 T/CUMM (4-12)
[2017-09-25] MEDS: NOREPINEPHRINE 8 MG in SODIUM CHLORIDE 0.9% 242 ML IV SCH (07:30)
[2017-09-25] MEDS: SEVELAMER CARBONATE 800 MG TABLET PO SCH ×3 (07:30→17:41)
[2017-09-25 07:36] LABS: INR 1.3
[2017-09-25 07:50] LABS: Band Neutrophils 6 % (0-10); Eosinophils 1 % (0-10); Hypochromasia 1+; Lymphocytes 28 % (20-55); Nucleated Red Blood Cells 1 (0-5); Segmented Neutrophils 49 % (50-85); Total Cells Counted 100
[2017-09-25 07:51] LABS: Macrocytosis 1+; Platelet Estimate Adequate; Polychromasia Slight
[2017-09-25 07:55] LABS: Calcium 9.8 MG/DL (8.5-10.1); Osmolality,Calculated 280.7 MOS/KG (273-304); Potassium 3.6 MMOL/L (3.5-5.1)
[2017-09-25] MEDS: URSODIOL 300 MG CAPSULE PO SCH ×2 (09:54→21:25)
[2017-09-25] MEDS: TAMSULOSIN 0.4 MG CAPSULE PO SCH (09:54)
[2017-09-25] MEDS: VENLAFAXINE 75 MG TABLET PO SCH ×2 (09:54→21:26)
[2017-09-25] MEDS: ROSUVASTATIN 20 MG TABLET PO SCH (09:54)
[2017-09-25] MEDS: FLUDROCORTISONE 0.1 MG TABLET PO SCH (09:54)
[2017-09-25] MEDS: MIDODRINE 5 MG TABLET PO SCH ×3 (09:55→21:34)
[2017-09-25] MEDS: CYANOCOBALAMIN 500 MCG TABLET PO SCH (09:55)
[2017-09-25] MEDS: PANTOPRAZOLE 40 MG VIAL IV SCH ×2 (09:59→21:34)
[2017-09-25] MEDS: MEROPENEM 1,000 MG in SYRINGE 1 EACH IV SCH (10:01)
[2017-09-25] MEDS: TRIAMCINOLONE 0.1% CREAM 15 GM TUBE TOP SCH ×2 (10:05→15:28)
[2017-09-25] MEDS: LEVOFLOXACIN INJ 750 MG in PREMIX 1 EACH IV SCH (10:07)
[2017-09-25] MEDS: ONDANSETRON 4 MG/2 ML VIAL IV PRN ×2 (12:00→21:39)
[2017-09-25] MEDS ORDERED: DIAZEPAM 5 MG TABLET PO ONE (12:22)
[2017-09-25] MEDS ORDERED: MIDAZOLAM 2 MG/2 ML VIAL IV ONE (12:22)
[2017-09-25] MEDS ORDERED: fentaNYL 100 MCG/2 ML VIAL IV ONE (12:22)
[2017-09-25] MEDS ORDERED: fentaNYL 100 MCG/2 ML VIAL ONE (13:51)
[2017-09-25] MEDS ORDERED: MIDAZOLAM 2 MG/2 ML VIAL ONE (13:52)
[2017-09-25] MEDS: AMINO ACIDS/DEXT/LYTES 4.25-5% 2,000 ML IV SCH (17:54)
[2017-09-26] MEDS: TRIAMCINOLONE 0.1% CREAM 15 GM TUBE TOP SCH ×4 (00:19→21:20)
[2017-09-26] MEDS: METOCLOPRAMIDE 10 MG/2 ML VIAL IV SCH ×5 (00:37→23:14)
[2017-09-26] MEDS: ONDANSETRON 4 MG/2 ML VIAL IV PRN ×2 (04:20→07:49)
[2017-09-26] MEDS ORDERED: ALUM/MAG/SIMETH/LIDO VISC 1:1 30 ML BOTTLE PO ONE (04:45)
[2017-09-26 04:46] LABS: Basophils # 0.1 10*3/uL (0.0-0.2); Basophils % 0.5 % (0.0-0.8); Eosinophils # 0.1 10*3/uL (0.0-0.87); Eosinophils % 0.7 % (0.00-10.9); Hematocrit 30.3 VOL% (42.0-52.0); Hemoglobin 9.8 GM/DL (14.0-18.0); Immature Granulocytes % 2.5 %; Immature Granulocytes Absolute 0.25 #; Lymphocytes # 2.1 10*3/uL (1.4-4.0); Lymphocytes % 21.1 % (21.2-54.2); Mean Corpuscular HGB Conc 32.3 GM/DL (32-36); Mean Corpuscular Hemoglobin 32 PG (27-34); Mean Platelet Volume 9.9 FL (9.6-12.0); Monocytes # 1.6 10*3/uL (0.11-0.8); Monocytes % 16.2 % (1.7-12.7); NRBC # 0.21 10*3/uL; Neutrophils # 5.8 10*3/uL (1.4-7.4); Platelet Count 179 T/CUMM (130-400); Red Blood Count 3.03 MC/CUMM (3.8-5.5); Red Cell Distribution Width 18.1 % (9.3-17.3); White Blood Count 9.9 T/CUMM (4-12)
[2017-09-26 05:17] LABS: Albumin 1.8 G/DL (3.4-5.0); Bilirubin,Total 2.7 MG/DL (0.2-1.0); Calcium 9.9 MG/DL (8.5-10.1); Magnesium 2.3 MG/DL (1.8-2.4); Osmolality,Calculated 280.8 MOS/KG (273-304); Total Protein 7.1 G/DL (6.4-8.3)
[2017-09-26 05:19] LABS: Band Neutrophils 2 % (0-10); Eosinophils 3 % (0-10); Lymphocytes 19 % (20-55); Metamyelocytes 2 %; Myelocytes 4 %; Nucleated Red Blood Cells 1 (0-5); Platelet Estimate Normal; Segmented Neutrophils 66 % (50-85); Total Cells Counted 100
[2017-09-26 05:39] LABS: INR 1.4; PT Patient Result 14.7 SECS
[2017-09-26] MEDS: PANTOPRAZOLE 40 MG VIAL IV SCH ×2 (09:21→21:00)
[2017-09-26] MEDS: MEROPENEM 1,000 MG in SYRINGE 1 EACH IV SCH (09:21)
[2017-09-26] MEDS: URSODIOL 300 MG CAPSULE PO SCH ×2 (09:24→21:04)
[2017-09-26] MEDS: SEVELAMER CARBONATE 800 MG TABLET PO SCH ×3 (09:24→17:17)
[2017-09-26] MEDS: MIDODRINE 5 MG TABLET PO SCH ×3 (09:25→21:05)
[2017-09-26] MEDS: TAMSULOSIN 0.4 MG CAPSULE PO SCH (09:25)
[2017-09-26] MEDS: VENLAFAXINE 75 MG TABLET PO SCH ×2 (09:25→21:04)
[2017-09-26] MEDS: ROSUVASTATIN 20 MG TABLET PO SCH (09:25)
[2017-09-26] MEDS: FLUDROCORTISONE 0.1 MG TABLET PO SCH (09:25)
[2017-09-26] MEDS: CYANOCOBALAMIN 500 MCG TABLET PO SCH (09:26)
[2017-09-26] MEDS: ACETAMINOPHEN 325 MG TABLET PO PRN (11:13)
[2017-09-26] MEDS: PROMETHAZINE INJ 25 MG in SODIUM CHLORIDE 0.9% 50 ML IV PRN (11:13)
[2017-09-26] MEDS: NOREPINEPHRINE 8 MG in SODIUM CHLORIDE 0.9% 242 ML IV SCH ×2 (15:01→23:14)
[2017-09-26] MEDS: AMINO ACIDS/DEXT/LYTES 4.25-5% 1,000 ML IV SCH (17:14)
[2017-09-27] MEDS ORDERED: NOREPINEPHRINE 16 MG in SODIUM CHLORIDE 0.9% 234 ML IV SCH (04:00)
[2017-09-27] MEDS: METOCLOPRAMIDE 10 MG/2 ML VIAL IV SCH ×2 (05:22→12:06)
[2017-09-27 05:26] LABS: Basophils # 0.1 10*3/uL (0.0-0.2); Basophils % 0.4 % (0.0-0.8); Eosinophils # 0.1 10*3/uL (0.0-0.87); Eosinophils % 0.7 % (0.00-10.9); Hematocrit 29.3 VOL% (42.0-52.0); Hemoglobin 9.6 GM/DL (14.0-18.0); Immature Granulocytes % 2.6 %; Immature Granulocytes Absolute 0.38 #; Lymphocytes # 2.9 10*3/uL (1.4-4.0); Lymphocytes % 19.2 % (21.2-54.2); Mean Corpuscular HGB Conc 32.8 GM/DL (32-36); Mean Corpuscular Hemoglobin 32 PG (27-34); Mean Corpuscular Volume 98.7 FL (87-102); Mean Platelet Volume 9.6 FL (9.6-12.0); Monocytes # 2.6 10*3/uL (0.11-0.8); Monocytes % 17.6 % (1.7-12.7); NRBC # 0.54 10*3/uL; Neutrophils # 8.8 10*3/uL (1.4-7.4); Neutrophils % 59.5 % (38.7-73.9); Platelet Count 161 T/CUMM (130-400); Red Blood Count 2.97 MC/CUMM (3.8-5.5); Red Cell Distribution Width 18.3 % (9.3-17.3); White Blood Count 14.8 T/CUMM (4-12)
[2017-09-27 05:55] LABS: Albumin 1.9 G/DL (3.4-5.0); Bilirubin,Direct 2.32 MG/DL (0.0-0.20); Bilirubin,Indirect 0.7 MG/DL (0.0-1.0); Total Protein 7.1 G/DL (6.4-8.3)
[2017-09-27 05:58] LABS: Band Neutrophils 3 % (0-10); Eosinophils 1 % (0-10); Lymphocytes 20 % (20-55); Myelocytes 1 %; Nucleated Red Blood Cells 3 (0-5); Segmented Neutrophils 58 % (50-85); Total Cells Counted 100
[2017-09-27 05:59] LABS: Giant Platelets Few; Hypochromasia 1+; Macrocytosis Slight; Ovalocytes Slight; Platelet Estimate Normal; Polychromasia Slight
[2017-09-27 06:23] LABS: Albumin 1.8 G/DL (3.4-5.0); Bilirubin,Total 3.3 MG/DL (0.2-1.0); Calcium 9.6 MG/DL (8.5-10.1); Magnesium 2.1 MG/DL (1.8-2.4); Osmolality,Calculated 274.2 MOS/KG (273-304); Potassium 4.2 MMOL/L (3.5-5.1); Total Protein 7.1 G/DL (6.4-8.3)
[2017-09-27] MEDS: SEVELAMER CARBONATE 800 MG TABLET PO SCH ×3 (07:38→16:29)
[2017-09-27] MEDS: ONDANSETRON 4 MG/2 ML VIAL IV PRN ×2 (09:45→15:25)
[2017-09-27] MEDS ORDERED: ONDANSETRON 4 MG/2 ML VIAL ONE (09:56)
[2017-09-27] MEDS: URSODIOL 300 MG CAPSULE PO SCH (12:04)
[2017-09-27] MEDS: TAMSULOSIN 0.4 MG CAPSULE PO SCH (12:04)
[2017-09-27] MEDS: VENLAFAXINE 75 MG TABLET PO SCH (12:04)
[2017-09-27] MEDS: FLUDROCORTISONE 0.1 MG TABLET PO SCH (12:04)
[2017-09-27] MEDS: ROSUVASTATIN 20 MG TABLET PO SCH (12:04)
[2017-09-27] MEDS: PANTOPRAZOLE 40 MG VIAL IV SCH (12:06)
[2017-09-27] MEDS: MIDODRINE 5 MG TABLET PO SCH ×2 (12:06→14:34)
[2017-09-27] MEDS: MEROPENEM 1,000 MG in SYRINGE 1 EACH IV SCH (12:06)
[2017-09-27] MEDS: TRIAMCINOLONE 0.1% CREAM 15 GM TUBE TOP SCH ×2 (12:06→14:33)
[2017-09-27] MEDS: CYANOCOBALAMIN 500 MCG TABLET PO SCH (12:06)
[2017-09-27] MEDS: PROMETHAZINE INJ 25 MG in SODIUM CHLORIDE 0.9% 50 ML IV PRN (13:30)
[2017-09-27] MEDS: LEVOFLOXACIN INJ 750 MG in PREMIX 1 EACH IV SCH (14:33)
[2017-09-27] MEDS: HYDROmorphone 2 MG/1 ML VIAL IV PRN ×2 (15:25→19:17)
[2017-09-27] MEDS: AMINO ACIDS/DEXT/LYTES 4.25-5% 1,000 ML IV SCH (16:58)
[2017-09-27 19:21] VITALS: BP 64/37
== END 2017-09-27 17:40 | disposition expired | DRG 438 ==
LOC: SUATTDRO → N.ED 04:56 → N.EDINP 06:44 → SUATTDRO 06:44 → N.CC 10:22
PROVIDERS: ADMIT Hospitalist; ATTEND Internal Medicine